=== PATIENT | female | born 1960 | race Caucasian/White ===

== ENCOUNTER 2020-04-21 07:44 | Outpatient (REF) | payer OTHER, SELFPAY ==
[2020-04-21 08:57] LABS: Albumin Level 4.4 g/dL (3.5-5.0); Calcium 9.8 mg/dL (8.4-10.2); Estimated Glomerular Filt Rate > 60
[2020-04-21 09:18] LABS: Vitamin D 25-OH Total 42.8 ng/mL (>30)
[2020-04-21 09:20] LABS: Free T4 (Free Thyroxine) 1.19 ng/dL (0.71-1.85); Thyroid Stimulating Hormone 1.13 uIU/mL (0.32-4.0)
[2020-04-21 09:57] LABS: Creatinine, mg/dL 65.84
[2020-04-21 13:57] LABS: Creatinine, 24Hr Urine 0.8 G/Day (1.0-2.0); Total Volume 24 Hour Urine 1275 mL
[2020-04-23 23:01] LABS: Adrenocorticotropic Hormone <5 pg/mL (6-50)
[2020-04-24 06:26] LABS: Calcium (PTHI) 10.2 mg/dL (8.6-10.4); PTHI 35 pg/mL (14-64)
[2020-04-25 20:42] LABS: Metanephrine, Free 33 pg/mL (<=57); Normetanephrines, Free 71 pg/mL (<=148); Total Metanephrine, Free 104 pg/mL (<=205)
[2020-04-26 12:53] LABS: Metanephrine, Free 24U 58 mcg/24 h (90-315); Normetanephrine, Free 24U 209 mcg/24 h (122-676); Total Metanephrine, Free 24U 267 mcg/24 h (224-832); Total Volume 24U 1275 mL
[2020-04-26 15:16] LABS: N-Telopeptide 46 (see note); NTXCreaRU 108 mg/dL (20-275)
[2020-05-02 05:43] LABS: CATF, 24 Ur Volume 1275 mL; CATF-24Ur Creatinine 0.84 g/24 h (0.50-2.15); Catecholamines,Tot. (E+NE) 24U 31 mcg/24 h (26-121); Dopamine, 24 Ur 117 mcg/24 h (52-480); Epinephrine, 24 Ur 4 mcg/24 h (2-24); Norepinephrine, 24 Ur 27 mcg/24 h (15-100)
[2020-05-02 16:51] LABS: Catecholamine Frac, Total 414 pg/mL
== END 2020-04-21 07:45 | disposition home or self-care (01) ==
LOC: HO.LAB 07:44
PROVIDERS: PCP Internal Medicine; Visit Provider Internal Medicine
DX: D35.01 Benign neoplasm of right adrenal gland (principal); E89.0 Postprocedural hypothyroidism; M85.80 Other specified disorders of bone density and structure, unspecified site; E83.52 Hypercalcemia; E55.9 Vitamin D deficiency, unspecified
CPT/HCPCS: 36415; 80299; 82024; 82040; 82306; 82310; 82384; 82523; 82533; 82565; 82570; 83835; 83970; 84439; 84443

== ENCOUNTER → 2020-04-26 15:35 | Outpatient (BNVA) | payer OTHER, SELFPAY | PROVIDERS: PCP Internal Medicine; Visit Provider Internal Medicine ==

== ENCOUNTER 2020-05-03 16:31 | Outpatient (REF) | payer OTHER, SELFPAY ==
--- NOTE | ~2020-05-03 | MR_ITS ---
EXAMINATION: MR ABDOMEN WITHOUT AND WITH CONTRAST CLINICAL INFORMATION: Benign neoplasm of the right adrenal gland COMPARISON: CT of the abdomen and pelvis 05/06/2018 TECHNIQUE: MR abdomen was performed without and with use of 6.5 mL intravenous Gadavist gadolinium contrast. Postcontrast images are performed in multiphase dynamic sequences. Imaging was performed in 3 planes. FINDINGS: LUNG BASES: The visualized lung bases are unremarkable. LIVER, GALLBLADDER, AND BILIARY TREE: The liver is normal in size, smooth in contour, and normal in signal. No focal hepatic lesion or biliary ductal dilatation is present. The gallbladder is unremarkable with no evidence of gallbladder wall thickening, or obvious pericholecystic inflammatory changes. PANCREAS: Unremarkable. SPLEEN: Normal. ADRENAL GLANDS: There is a 1.6 x 1.2 cm right adrenal nodule, overall similar in size as compared to the prior study. This nodule demonstrates decreased signal on opposed phase imaging, compatible with a lipid rich adrenal adenoma. The left adrenal gland is normal. KIDNEYS AND URETERS: The kidneys are normal in size, shape, and enhance symmetrically. No hydronephrosis. No perinephric stranding. GASTROINTESTINAL TRACT: The visualized stomach and small bowel are unremarkable. Again demonstrated is colonic diverticulosis. No evidence of diverticulitis. ABDOMINAL WALL: No significant hernia is appreciated. LYMPH NODES: No lymphadenopathy. VASCULAR: Normal caliber of the abdominal aorta OSSEOUS STRUCTURES: Marrow signal normal. MR/MR abdomen wo/w con IMPRESSION: Stable 1.6 x 1.2 cm benign right adrenal nodule. Diverticulosis of the colon without evidence of diverticulitis.
== END 2020-05-03 16:32 | disposition home or self-care (01) ==
LOC: HO.MRI 16:31
PROVIDERS: Visit Provider Internal Medicine
DX: D35.01 Benign neoplasm of right adrenal gland (principal)
CPT/HCPCS: 74183; A9585

== ENCOUNTER → 2020-06-21 15:45 | Outpatient (BNVA) | payer OTHER, SELFPAY | PROVIDERS: PCP Internal Medicine; Visit Provider Internal Medicine ==

== ENCOUNTER 2021-02-14 06:02 | Outpatient (REF) | payer OTHER, SELFPAY | END 2021-02-14 06:03 | disposition home or self-care (01) | LOC: HO.LAB 06:02 | PROVIDERS: PCP Internal Medicine; Visit Provider Internal Medicine | DX: Z13.89 Encounter for screening for other disorder (principal) ==

== ENCOUNTER 2021-04-06 07:52 | Outpatient (REF) | payer OTHER, SELFPAY ==
[2021-04-06 09:03] LABS: Alanine Aminotransferase 13 U/L (0-31); Albumin Level 4.1 g/dL (3.5-5.0); Alkaline Phosphatase 71 U/L (39-117); Anion Gap 12 (12-20); Aspartate Amino Transferase 18 U/L (5-31); Bilirubin Total 0.4 mg/dL (0.0-1.0); Blood Urea Nitrogen 21 mg/dL (9-16); Calcium 9.1 mg/dL (8.4-10.2); Carbon Dioxide 22 mmol/L (22-29); Chloride 110 mmol/L (96-108); Estimated Glomerular Filt Rate > 60; Glucose Random 100 mg/dL (60-115); Potassium 4.4 mmol/L (3.3-5.1); Sodium 140 mmol/L (135-145); Total Protein 6.3 g/dL (6.5-8.0)
[2021-04-06 09:20] LABS: Free T4 (Free Thyroxine) 1.14 ng/dL (0.71-1.85); Thyroid Stimulating Hormone 0.75 uIU/mL (0.32-4.0)
[2021-04-06 09:49] LABS: Creatinine, mg/dL 63.81
[2021-04-06 10:04] LABS: Cortisol Random 8.1 ug/dL
[2021-04-06 10:26] LABS: Creatinine, 24Hr Urine 1.1 G/Day (1.0-2.0); Total Volume 24 Hour Urine 1750 mL
[2021-04-06 13:44] LABS: Vitamin D 25-OH Total 37.3 ng/mL (>30)
[2021-04-08 16:35] LABS: Adrenocorticotropic Hormone 16 pg/mL (6-50)
[2021-04-08 16:35] LABS: Calcium, 24 Hr Urine 144 mg/24 h; Calcium/Creatinine Ratio 121 mg/g creat (30-275); Creatinine 24Hr Urine 1.19 g/24 h (0.50-2.15)
[2021-04-08 17:46] LABS: DHEA Sulfate 32 mcg/dL (8-188)
[2021-04-08 21:51] LABS: Prot Elec - Albumin 4.1 g/dL (3.8-4.8); Prot Elec - Alpha1 0.3 g/dL (0.2-0.3); Prot Elec - Alpha2 0.8 g/dL (0.5-0.9); Prot Elec - Beta 1 0.4 g/dL (0.4-0.6); Prot Elec - Beta 2 0.3 g/dL (0.2-0.5); Prot Elec - Gamma 0.5 g/dL (0.8-1.7); Prot Elec - Total Protein 6.3 g/dL (6.1-8.1)
[2021-04-09 12:37] LABS: Calcium (PTHI) 9.4 mg/dL (8.6-10.4); PTHI 44 pg/mL (14-64)
[2021-04-10 14:53] LABS: Metanephrine, Free 24U 90 mcg/24 h (90-315); Normetanephrine, Free 24U 298 mcg/24 h (122-676); Total Metanephrine, Free 24U 388 mcg/24 h (224-832); Total Volume 24U 1750 mL
[2021-04-10 22:07] LABS: Cortisol Free, 24 Hr Urine 38.9 mcg/24 h (4.0-50.0); Creatinine, 24 Hr Urine 1.22 g/24 h (0.50-2.15); Total Volume, 24 Hr Urine 1750 mL
[2021-04-11 18:16] LABS: Metanephrine, Free 38 pg/mL (<=57); Normetanephrines, Free 92 pg/mL (<=148); Total Metanephrine, Free 130 pg/mL (<=205)
[2021-04-12 20:46] LABS: CATF, 24 Ur Volume 1750 mL; CATF-24Ur Creatinine 1.24 g/24 h (0.50-2.15); Catecholamines,Tot. (E+NE) 24U 39 mcg/24 h (26-121); Dopamine, 24 Ur 203 mcg/24 h (52-480); Norepinephrine, 24 Ur 39 mcg/24 h (15-100)
[2021-04-14 15:26] LABS: Catecholamine Frac, Total 437 pg/mL
[2021-04-16 11:51] LABS: Renin 0.37 ng/mL/h (0.25-5.82)
== END 2021-04-06 07:53 | disposition home or self-care (01) ==
LOC: HO.LAB 07:52
PROVIDERS: Visit Provider Internal Medicine
DX: D35.01 Benign neoplasm of right adrenal gland (principal); E83.52 Hypercalcemia; E03.9 Hypothyroidism, unspecified
CPT/HCPCS: 36415; 80053; 82024; 82088; 82306; 82340; 82384; 82530; 82533; 82570; 82627; 83835; 83970; 84100; 84165; 84244; 84439; 84443

== ENCOUNTER 2021-06-06 03:13 | Observation (INO) | payer OTHER, SELFPAY ==
[2021-06-06] VITALS (8 sets, daily range): BP systolic 101–161; BP diastolic 51–90; PULSE 70–78; RESP 14–18; TEMP 36.6–37.2; O2SAT 95–100; BMI 30.3
--- NOTE | ~2021-06-06 | CT_ITS ---
EXAMINATION: CT ABDOMEN AND PELVIS WITH CONTRAST CLINICAL INFORMATION: Diffuse abdominal pain COMPARISON: May 06, 2018 TECHNIQUE: Multidetector volumetric images were obtained from the superior aspect of the liver through the pubic symphysis following administration 85 mL of Omnipaque 350 intravenous contrast. Sagittal and coronal reformatted images were obtained on the technologist's workstation. Oral contrast: No This CT examination was performed using dose optimization techniques as appropriate, variously including the following: *Automated exposure control *Adjustment of mA and/or kV according to patient size (this includes techniques or standardized protocols for targeted exams where dose is matched to indication/reason for exam; i.e. extremities or head) *Use of iterative reconstruction technique DLP: 458 mGy-cm FINDINGS: LUNG BASES: The visualized lung bases are unremarkable. No pleural or pericardial effusion. LIVER, GALLBLADDER, AND BILIARY TREE: The liver is normal in size, shape, and attenuation. No focal hepatic lesion or biliary ductal dilatation is present. There is some focal fatty infiltration seen adjacent to the falciform ligament. The gallbladder is unremarkable with no evidence of radiopaque gallstones, gallbladder wall thickening, or obvious pericholecystic inflammatory changes. PANCREAS: There is an 8 mm low-density lesion adjacent to the anterior aspect of the tail of the pancreas which may represent a small serous or mucinous tumor. This was present and appears stable compared to study of May 06, 2018. No peripancreatic inflammatory change. SPLEEN: Unremarkable. ADRENAL GLANDS: There is a stable 2.0 x 1.3 cm right adrenal gland adenoma. KIDNEYS AND URETERS: The kidneys are normal in size, shape, and attenuation. No hydronephrosis, hydroureter, or calculi seen. No perinephric stranding. BLADDER: Decompressed but unremarkable. GASTROINTESTINAL TRACT: No free air is identified. There is small to moderate amount of free fluid seen about the abdomen and pelvis. There mildly dilated loops of small bowel with bowel wall thickening and enhancement of the mucosa and muscularis propria with edematous submucosa. There appears to be a possible internal hernia of small bowel through the mesentery along the left colon. However the transition of caliber of small bowel appears to be at a surgical anastomosis about the right anterior abdomen. The appendix appears unremarkable. ABDOMINAL WALL: There is a small fat-containing supraumbilical hernia. LYMPH NODES: No lymphadenopathy is appreciated. VASCULAR: Portal vein is patent. No abdominal aortic aneurysm. There is aortoiliac calcified plaque most prominent within the iliac vessels and is difficult to tell whether there may be hemodynamically significant disease within the iliac arteries. PELVIC VISCERA: The uterus is enlarged with what appears to represent a 6.9 x 6.3 cm uterine mass which may represent a fibroid. On prior study of May 06, 2018 this measured approximately 5 x 6 cm in size. OSSEOUS STRUCTURES: There is L5-S1 degenerative disc disease present. No destructive bony lesion is identified. CT/CT abdomen pelvis w con IMPRESSION: Small bowel obstruction with transition point at region of surgical anastomosis about the anterior right abdomen with wall edema of the submucosa with enhancement of the mucosa and muscularis propria. Small amount of ascites present. Question of nonobstructing left internal hernia. Stable pancreatic and right adrenal gland lesions. Question enlarging uterine fibroid. Fleischner guidelines were followed.
--- NOTE | 2021-06-06 05:57 | ED_ITS ---
HPI - Abdominal Pain General Chief Complaint: Abdominal Pain Stated Complaint: stomach pain Time Seen by Provider: 06/06/21 05:25 Source: patient Mode of arrival: ambulatory History of Present Illness HPI narrative: 60-year-old female with a history of diverticulitis as well as abdominal hernia and still has her gallbladder and appendix presents with worsening mid abdominal discomfort since Thursday, she denies that the pain radiates anywhere and she states she has had chills but otherwise denies nausea, vomiting, diarrhea and denies any urinary pain/burning/frequency. She also endorses that she has no history of renal colic for Related Data Previous Rx's Medication Instructions Recorded cholecalciferol (vitamin D3) 50 50 mcg PO DAILY 30 Days #30 cap 12/25/ mcg (2,000 unit) capsule levothyroxine 100 mcg tablet 100 mcg PO DAILY #90 tab 04/08/21 Allergies Allergy/AdvReac Type Severity Reaction Status Date / Time morphine Allergy Unknown ?rash Verified 06/06/21 03:36 gluten Allergy Unknown Verified 06/06/21 03:36 lactase [From Dairy Aid] Allergy Unknown Verified 06/06/21 03:36 peanut [Peanut] AdvReac Intermediate DIVERTICULI Verified 06/06/21 03:36 TIS Review of Systems Review of Systems Pertinent positives and negatives as stated in HPI and 10 point review of systems is otherwise negative. PMFSH Past Medical History Source: nursing notes reviewed Medical History Adrenal adenoma Hypercalcemia Hypothyroidism Osteopenia Vitamin D deficiency Surgical History H/O mastectomy Hx of colonoscopy Hx of rotator cuff surgery Status post Jeremiah procedure Family History Family History Father Hypertension Skin cancer Mother No problems noted. Social History Social History Advance Directives: No Advance Directives Information Provided: Yes Physical Exam ED Vital Signs: Vital Signs - 24 hr 06/06/21 03:33 Temperature 98.7 F Pulse Rate 78 Respiratory Rate 16 Blood Pressure 134/78 Pulse Oximetry 98 BMI result Body Mass Index 30.3 VITAL SIGNS: Reviewed. GENERAL: Well developed, well nourished, in no acute distress. HEAD: Normocephalic/atraumatic EYES: PERRLA, EOMI EARS: Ext canals without abnormality OROPHARYNX: no oral lesions noted, posterior pharynx clear LUNGS: Normal breath sounds. No adventitious sounds or accessory muscle use. SpO2<98> CARDIOVASCULAR: Regular rate and rhythm without noted murmurs, no JVD or lower extremity edema. ABDOMEN: Soft, diffusely tender without rebound, maximal left lower quadrant, non-distended with bowel sounds, no CVA tenderness SKIN: Inspection of the skin reveals no rashes NEUROLOGIC: Alert and oriented x 4. Strength and sensation to light touch were grossly intact x 4. Course Course Course Narrative: 60-year-old female with history and clinical presentation suggestive of possible diverticulitis, appendicitis, renal colic. Signed out to Dr Ryder. [facility] - Abdominal Pain Lab Data Result diagrams: 06/06/21 06:42 06/06/21 06:42 Discharge Plan Discharge Clinical Impression: Abdominal pain Patient Disposition: Still a Patient Prescriptions: No Action cholecalciferol (vitamin D3) 50 mcg (2,000 unit) capsule 50 mcg PO DAILY 30 Days Qty: 30 11RF levothyroxine 100 mcg tablet 100 mcg PO DAILY Qty: 90 11RF
[2021-06-06 06:46] LABS: MANUAL DIFF FLAG NO
[2021-06-06 06:50] LABS: Basophils Percent Auto 0.3 % (0-2); Eosinophils Absolute Auto 0.1 X10*3/uL (0.0-0.4); Eosinophils Percent Auto 0.6 % (0-4); Hematocrit 45.2 % (37.0-47.0); Hemoglobin 15.4 g/dl (12.0-16.0); Imm Gran Abs Auto 0.05 X10*3/uL (0.00-0.03); Imm Gran Pct Auto 0.4 % (0.0-0.4); Lymphocytes Absolute Auto 1.7 X10*3/uL (1.2-4.9); Lymphocytes Percent Auto 14.9 % (20-40); Mean Corpuscular HGB Conc 34.1 g/dl (31.0-35.0); Mean Corpuscular Hemoglobin 31.8 pg (27.0-33.0); Mean Corpuscular Volume 93.2 fL (80.0-98.0); Mean Platelet Volume 10.6 fL (9.4-12.3); Monocytes Absolute Auto 0.6 X10*3/uL (0.1-1.2); Neutrophils Absolute Auto 9.1 x10*3/uL (2.0-8.3); Neutrophils Percent Auto 78.8 % (45-73); Platelet Count 229 X10*3/uL (160-400); Red Blood Count 4.85 X10*6/uL (4.20-5.50); Red Cell Distribution Width 12.9 % (11.0-16.0); White Blood Count 11.6 X10*3/uL (4.8-10.8)
[2021-06-06] MEDS: Ketorolac Tromethamine 30 MG/ML VIAL 15 MG IVPUSH (06:52)
[2021-06-06 07:07] LABS: Alanine Aminotransferase 15 U/L (0-31); Albumin Level 4.5 g/dL (3.5-5.0); Alkaline Phosphatase 69 U/L (39-117); Anion Gap 11 (12-20); Aspartate Amino Transferase 17 U/L (5-31); Bilirubin Total 0.4 mg/dL (0.0-1.0); Blood Urea Nitrogen 9 mg/dL (9-16); Calcium 9.7 mg/dL (8.4-10.2); Carbon Dioxide 28 mmol/L (22-29); Chloride 105 mmol/L (96-108); Creatinine Clr Calc Pharmacy 68.4; Estimated Glomerular Filt Rate > 60; Glucose Random 104 mg/dL (60-115); Lipase 21 U/L (8-78); Potassium 4.3 mmol/L (3.3-5.1); Sodium 140 mmol/L (135-145); Total Protein 6.8 g/dL (6.5-8.0)
[2021-06-06] MEDS: Piperacillin Sodium/Tazobactam 3.375 GM in 0.9 % Sodium Chloride 50 ML IV (07:37)
[2021-06-06 07:49] LABS: Appearance Urine CLEAR; Color Urine YELLOW; Glucose Urine UA NEG (NEG); Leukocyte Esterase Urine NEG (NEG); Nitrite Urine NEG (NEG); PH 5.5 (5.0-8.0); Specific Gravity - Urine <= 1.005 (1.005-1.025); UACC Culture Trigger NO; Urine Blood TRACE (NEG); Urine Ketones NEG (NEG); Urine Protein NEG (NEG-TRACE)
[2021-06-06 07:56] LABS: RBC Urine 0-2 /HPF (0); Squamous Epithelial Cell Urine TRACE /LPF; WBC Urine 0 /HPF (0-4)
[2021-06-06] MEDS: iohexoL 350 MG/ML 100 ML INFUS..BTL IV (08:55)
--- NOTE | 2021-06-06 09:16 | PC.NURSE ---
PT AWAKE IN NO OUTWARD DISTRESS. AWAITING CT SCAN RESULTS
--- NOTE | 2021-06-06 12:17 | PC.NURSE ---
DR SONG AT THE BEDSIDE TO REVIEW CT RESULTS
--- NOTE | 2021-06-06 12:55 | PHA.MEDREC ---
Pharmacy Consult ? Medication Reconciliation Pharmacy has completed the medication reconciliation.
--- NOTE | 2021-06-06 12:59 | P.HPGS_ITS ---
History of Present Illness History of Present Illness Date of Service: 06/06/21 <Yaima Momin PA-C - Last Filed: 06/06/21 13:26> 06/06/21 <Cristian Saba MD - Last Filed: 06/06/21 14:56> Chief complaint: SBO <Yaima Momin PA-C - Last Filed: 06/06/21 13:26> Narrative: Haven Delcid is a 60 year old female who presented to the ED with complaints of abdominal pain. The patient reports the pain began Thursday after eating [place] food. The pain wasn't consistenly in one spot and was more diffuse with occasional more severe episodes in the mid abdomen on the right side. She has never had a pain like this before. It was not associated with nausea, vomiting, fever, chills, diarrhea. She has been passing flatus and her last BM was today. It was moderate in severity and persisted prompting her to seek evaluation in the ED. Work up in the ED included a CT scan abd/pelvis which showed mildly dilated loops of small bowel with bowel wall thickening and enhancement of the mucosa and muscularis propria with edematous submucosa with a possible internal hernia of small bowel through the mesentery along the left colon with the transition of caliber of small bowel appears to be at a surgical anastomosis about the right anterior abdomen. She feels improved now with minimal abdominal pain and wants to go home. Patient has a history of gian procedure in 2016 for perforated diverticulitis with abscess followed by subsequent colostomy reversal with diverting loop ileostomy and loop ileostomy closure. <Yaima Momin PA-C - Last Filed: 06/06/21 13:26> Review of Systems Constitutional: Constitutional: Denies chills, Denies fever(s), Denies malaise and Reports poor appetite <Yaima Momin PA-C - Last Filed: 06/06/21 13:26> ENT: Denies dizziness <WENDY Mayorga Last Filed: 06/06/21 13:26> Cardiovascular: Cardiovascular: Denies chest pain and Denies dyspnea <Yaima Momin PA-C - Last Filed: 06/06/21 13:26> Respiratory: Respiratory: Denies dyspnea <Yaima Momin PA-C - Last Filed: 06/06/21 13:26> Gastrointestinal: Gastrointestinal: Reports as per HPI, Denies hematochezia, Denies change in stool character, Denies constipation, Denies diarrhea, Denies nausea and Denies vomiting <Yaima Momin PA-C - Last Filed: 06/06/21 13:26> Genitourinary: Genitourinary: Denies hematuria and Denies dysuria <Yaima Momin PA-C - Last Filed: 06/06/21 13:26> Integumentary/Breasts: Skin/Breast: Denies rash <Yaima Momin PA-C - Last Filed: 06/06/21 13:26> Neurologic: Denies dizziness <Yaima Momin PA-C - Last Filed: 06/06/21 13:26> [facility] Past Medical History Medical History: Medical History (Updated 06/06/21 @ 13:25 by Yaima Momin PA-C) Adrenal adenoma Hypercalcemia Hypothyroidism Osteopenia Vitamin D deficiency <Yaima Momin PA-C - Last Filed: 06/06/21 13:26> Family History Family History: Family History Father Hypertension Skin cancer Mother No problems noted. <Yaima Momin PA-C - Last Filed: 06/06/21 13:26> Surgical History Surgical History: Surgical History (Updated 06/06/21 @ 13:06 by Yaima Momin PA-C) H/O mastectomy Hx of colonoscopy Hx of rotator cuff surgery S/P colostomy takedown S/P thyroidectomy Status post Gian procedure Status post reversal of ileostomy <Yaima Momin PA-C - Last Filed: 06/06/21 13:26> Social History Social History: Social History Advance Directives: No Advance Directives Information Provided: Yes <Yaima Momin PA-C - Last Filed: 06/06/21 13:26> Meds Allergies/Adverse reactions: Allergies Allergy/AdvReac Type Severity Reaction Status Date / Time morphine Allergy Unknown ?rash Verified 06/06/21 03:36 gluten Allergy Unknown Verified 06/06/21 03:36 lactase [From Dairy Aid] Allergy Unknown Verified 06/06/21 03:36 peanut [Peanut] AdvReac Intermediate DIVERTICULI Verified 06/06/21 03:36 TIS <Yaima Momin PA-C Last Filed: 06/06/21 13:26> Home medications: Home Medications Medication Instructions Recorded Confirmed Last Taken Type cholecalciferol (vitamin D3) 50 50 mcg PO BEDTIME 06/06/21 06/06/21 06/05/21 History mcg (2,000 unit) capsule <Yaima Momin PA-C Last Filed: 06/06/21 13:26> Physical Exam Vital Signs: Vital Signs: Last Vital Signs Temp 98.7 F 06/06/21 03:33 Pulse 74 06/06/21 09:17 Resp 14 06/06/21 09:17 BP 113/55 L 06/06/21 09:17 Pulse Ox 98 06/06/21 03:33 BMI result Body Mass Index 30.3 <WENDY Mayorga Last Filed: 06/06/21 13:26> Const: General: comfortable, no acute distress and alert <Yaima Momin PA-C Last Filed: 06/06/21 13:26> Nutritional Appearance: well nourished <Yaima Momin PA-C Last Filed: 06/06/21 13:26> Orientation/consciousness: patient oriented x3 <WENDY Mayorga Last Filed: 06/06/21 13:26> Resp: Effort & Inspection: normal respiratory effort <WENDY Mayorga Last Filed: 06/06/21 13:26> Cardio: Rate: regular rate <Yaima Momin PA-C Last Filed: 06/06/21 13:26> GI: Inspection: No distended and Yes scar (midline) <WENDY Mayorga Last Filed: 06/06/21 13:26> Palpation (GI): Soft to palpation, Tenderness to palpation present (GI) (very mild to deep palpation, right upper/midabdomen), no guarding and not rigid <Yaima Momin PA-C Last Filed: 06/06/21 13:26> Percussion: Yes normal to percussion <Yaima Momin PA-C Riccardo Last Filed: 06/06/21 13:26> Abdomen image: 1. 2. 3. <Yaima Momin PA-C Riccardo Last Filed: 06/06/21 13:26> Skin: General skin exam: no rashes or lesions noted <Yaima Momin PA-C Riccardo Last Filed: 06/06/21 13:26> Neuro: General: patient oriented x3 <Yaima Momin PA-C Riccardo Filed: 06/06/21 13:26> Extrem: General: Yes no clubbing, cyanosis or edema <WENDY Mayorga Last Filed: 06/06/21 13:26> Results Results Labs: Short CBC 06/06/21 Range/Units 06:42 WBC 11.6 H (4.8-10.8) X10*3/uL Hgb 15.4 (12.0-16.0) g/dl Hct 45.2 (37.0-47.0) % Plt Count 229 (160-400) X10*3/uL BMP 06/06/21 06:42 Sodium 140 Potassium 4.3 Chloride 105 Carbon Dioxide 28 BUN 9 D Creatinine 0.71 Calcium 9.7 D Liver Function 06/06/21 Range/Units 06:42 Total Bilirubin 0.4 (0.0-1.0) mg/dL AST 17 (5-31) U/L ALT 15 (0-31) U/L Alkaline Phosphatase 69 (39-117) U/L Albumin 4.5 (3.5-5.0) g/dL Urine 06/06/21 Range/Units 07:39 Urine Color YELLOW Urine Appearance CLEAR Urine pH 5.5 (5.0-8.0) Ur Specific [place] <= 1.005 (1.005-1.025) Urine Protein NEG (NEG-TRACE) MG/DL Urine Glucose (UA) NEG (NEG) MG/DL <WENDY Mayorga Last Filed: 06/06/21 13:26> Additional studies: CT SCAN ABD/PELVIS: IMPRESSION: Small bowel obstruction with transition point at region of surgical anastomosis about the anterior right abdomen with wall edema of the submucosa with enhancement of the mucosa and muscularis propria. Small amount of ascites present. Question of nonobstructing left internal hernia. Stable pancreatic and right adrenal gland lesions. Question enlarging uterine fibroid. Fleischner guidelines were followed. <Yaima Momin PA-C - Last Filed: 06/06/21 13:26> Assessment and Plan (1) SBO (small bowel obstruction): Status: Acute <Yaima Momin PA-C - Last Filed: 06/06/21 13:26> Patient seen and examined the ER Currently has minimal pain or tenderness Looks well Abdomen soft very benign However, in view of her CAT scan findings showing question of obstruction, I told her it is best to keep her in the hospital overnight Keep on clear liquids Labs okay otherwise Seen examined independently - agree with SEAN Momin <Cristian Saba MD - Last Filed: 06/06/21 14:56> Plan 60 year old female with history of multiple abdominal surgeries who presented to the ED with complaints of abdominal pain with a CT scan demonstrating dilated small bowel loops with possible wall thickening and question of an internal hernia with transition of caliber of small bowel appears to be at a surgical anastomosis. The patient feels well now with minimal abdominal pain. She is clinically appearing well and her abdomen is very benign with very mild tenderness to deep palpation in the right mid abdomen. ?SBO may be resolving as she has good GI function. At this time doubt SBO secondary to internal hernia as she is very well appearing. Will keep her overnight for observation as she did just receive analgesics that may be masking pain. Will continue clear liquids for now, analgesics and antiemetics as needed. Patient discussed with Dr. Saba. <Yaima Momin PA-C - Last Filed: 06/06/21 13:26> Quality Stroke Does the patient have a stroke diagnosis?: No <Yaima Momin PA-C - Last Filed: 06/06/21 13:26> VTE Prior VTE?: No <WENDY Mayorga Last Filed: 06/06/21 13:26> VTE Risk Level:: Medical - low <WENDY Mayorga Last Filed: 06/06/21 13:26> VTE Device Contraindication: N/A - Device Ordered <Yaima Momin PA-C - Last Filed: 06/06/21 13:26> VTE Drug Contraindication: Treatment Not Indicated <Yaima Momin PA-C - Last Filed: 06/06/21 13:26> Procedures Date of Service Date of Service: 06/06/21 <Yaima Momin PA-C - Last Filed: 06/06/21 13:26>
[2021-06-06] MEDS: Lactated Ringers 1,000 ML 80 ML IVCONT (13:41)
[2021-06-06 14:37] LABS: COVID-19 Test Negative (Negative); IDNOW Serial# 16C4AD1C
--- NOTE | 2021-06-06 15:36 | PC.NURSE ---
PT TO OVERFLOW AWAITING ADMISSION
--- NOTE | 2021-06-06 17:18 | PM.EVENT ---
Event Note Date of Service: 06/06/21 Event Note: Seen on afternoon rounds feels well minimal pain no n/v abd soft, nondistended, benign, very minimal tenderness keep on clears reeval tomorrow, if continuing to do well, advance diet
[2021-06-06] MEDS: Melatonin 3 MG TABLET 6 MG PO (22:45)
[2021-06-06] MEDS: oxyCODONE HCl Immed Release 5 MG TABLET 10 MG PO (22:45)
[2021-06-07] MEDS: Lactated Ringers 1,000 ML 80 ML IVCONT ×2 (02:57→14:57)
[2021-06-07] MEDS: Levothyroxine Sodium 100 MCG TABLET PO (04:30)
[2021-06-07 07:07] VITALS: BP 131/68; PULSE 80; RESP 17; TEMP 36.6; O2SAT 95
[2021-06-07] MEDS: oxyCODONE HCl Immed Release 5 MG TABLET 10 MG PO (07:47)
--- NOTE | 2021-06-07 08:55 | P.PNGS_ITS ---
Subjective Subjective Date of Service: 06/07/21 Interval history: Says she still has pain, although better Mostly on the upper abdomen Passing flatus No nausea or vomiting Physical Exam Vital Signs: Vital Signs: Last Vital Signs Temp 97.9 F 06/07/21 07:07 Pulse 80 06/07/21 07:07 Resp 17 06/07/21 07:07 BP 131/68 06/07/21 07:07 Pulse Ox 95 06/07/21 07:07 BMI result Body Mass Index 30.3 Const: General: comfortable and no acute distress Resp: Effort & Inspection: normal respiratory effort Cardio: Rate: regular rate GI: Other: Mild tenderness, diffuse the Inspection: No distended Palpation (GI): Soft to palpation, not firm, no guarding and not rigid Objective Data Active Medications Acetaminophen (Acetaminophen 325 Mg Tablet) 650 mg PO Q6H PRN PRN Reason: Pain, Mild (Pain Scale 1-3) Hydromorphone HCl (Hydromorphone Hcl 0.5 Mg/0.5 Ml Syringe) 0.25 mg IVPUSH Q3H PRN; Protocol PRN Reason: Pain, Severe (Pain Scale 7-10) Lactated Ringer's (Lr) 1,000 mls @ 80 mls/hr IVCONT .[id number] [facility] Last Admin: 06/07/21 02:57 Dose: 80 mls/hr Documented by: KATHERINE Ketorolac Tromethamine (Ketorolac Tromethamine 15 Mg/Ml Vial) 15 mg IVPUSH Q6H PRN PRN Reason: abdominal pain Levothyroxine Sodium (Levothyroxine Sodium 100 Mcg Tablet) 100 mcg PO DAILY@0600 [facility] Last Admin: 06/07/21 04:30 Dose: 100 mcg Documented by: KATHERINE Melatonin (Melatonin 3 Mg Tablet) 6 mg PO BEDTIME PRN PRN Reason: Insomnia Last Admin: 06/06/21 22:45 Dose: 6 mg Documented by: KATHERINE Oxycodone HCl (Oxycodone Hcl Immed Release 5 Mg Tablet) 5 mg PO Q4H PRN PRN Reason: Pain, Moderate (Pain Scale 4-6 Oxycodone HCl (Oxycodone Hcl Immed Release 5 Mg Tablet) 10 mg PO Q4H PRN PRN Reason: Pain, Severe (Pain Scale 7-10) Last Admin: 06/07/21 07:47 Dose: 10 mg Documented by: PRASHANTH Sodium Chloride (0.9 % Sodium Chloride Flush 3 Ml Syringe) 3 ml IVFLUSH QSHIFT [facility] Last Admin: 06/07/21 07:45 Dose: Not Given Documented by: PRASHANTH Non-Admin Reason: IV Running Labs CBC & Chem 7: 06/06/21 06:42 06/06/21 06:42 Labs: Laboratory Results - last 24 hr 06/06/21 14:16 COVID-19 (JENNIFER) Negative COVID-19 Clin Com See Note Procedures Date of Service Date of Service: 06/07/21 Progress Note: A&P Assessment and plan (1) SBO (small bowel obstruction): Status: Acute Assessment and Plan: Still with abdominal pain, although better Passing flatus Abdomen soft and benign Will keep on clear liquids for now and re-evaluate later on today Otherwise looks well and ambulating Fall Risk Details Current Medications: Current Medications Acetaminophen (Acetaminophen 325 Mg Tablet) 650 mg PO Q6H PRN PRN Reason: Pain, Mild (Pain Scale 1-3) Hydromorphone HCl (Hydromorphone Hcl 0.5 Mg/0.5 Ml Syringe) 0.25 mg IVPUSH Q3H PRN; Protocol PRN Reason: Pain, Severe (Pain Scale 7-10) Lactated Ringer's (Lr) 1,000 mls @ 80 mls/hr IVCONT .[id number] [facility] Last Admin: 06/07/21 02:57 Dose: 80 mls/hr Documented by: Ketorolac Tromethamine (Ketorolac Tromethamine 15 Mg/Ml Vial) 15 mg IVPUSH Q6H PRN PRN Reason: abdominal pain Levothyroxine Sodium (Levothyroxine Sodium 100 Mcg Tablet) 100 mcg PO DAILY@0600 [facility] Last Admin: 06/07/21 04:30 Dose: 100 mcg Documented by: Melatonin (Melatonin 3 Mg Tablet) 6 mg PO BEDTIME PRN PRN Reason: Insomnia Last Admin: 06/06/21 22:45 Dose: 6 mg Documented by: Oxycodone HCl (Oxycodone Hcl Immed Release 5 Mg Tablet) 5 mg PO Q4H PRN PRN Reason: Pain, Moderate (Pain Scale 4-6 Oxycodone HCl (Oxycodone Hcl Immed Release 5 Mg Tablet) 10 mg PO Q4H PRN PRN Reason: Pain, Severe (Pain Scale 7-10) Last Admin: 06/07/21 07:47 Dose: 10 mg Documented by: Sodium Chloride (0.9 % Sodium Chloride Flush 3 Ml Syringe) 3 ml IVFLUSH [facility] Last Admin: 06/07/21 07:45 Dose: Not Given Documented by: Time Spent With Patient Time: Total time spent is greater than 50% in coordination of care (as documented) at patient's floor/unit and/or counseling patient: Quality Stroke Does the patient have a stroke diagnosis?: No VTE Prior VTE?: No VTE Risk Level:: Medical - low VTE Device Contraindication: N/A - Device Ordered VTE Drug Contraindication: Treatment Not Indicated
--- NOTE | 2021-06-07 09:20 | MHC.CM.PN ---
nurse case resource manager note electronic medical record reviewed along with case discusses with staff nurse. 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
[2021-06-07 16:00] VITALS: BP 179/99; PULSE 89; RESP 20; TEMP 36.6; O2SAT 98
[2021-06-08] VITALS: BP 131/66; PULSE 63; RESP 18; TEMP 36.6; O2SAT 98
[2021-06-08] MEDS: Melatonin 3 MG TABLET 6 MG PO (00:01)
[2021-06-08] MEDS: Lactated Ringers 1,000 ML 80 ML IVCONT (02:41)
[2021-06-08] MEDS: Levothyroxine Sodium 100 MCG TABLET PO (03:03)
[2021-06-08 06:15] LABS: Hematocrit 38.8 % (37.0-47.0); Hemoglobin 13.1 g/dl (12.0-16.0); Mean Corpuscular HGB Conc 33.8 g/dl (31.0-35.0); Mean Corpuscular Hemoglobin 31.3 pg (27.0-33.0); Mean Corpuscular Volume 92.6 fL (80.0-98.0); Mean Platelet Volume 11.2 fL (9.4-12.3); Platelet Count 201 X10*3/uL (160-400); Red Blood Count 4.19 X10*6/uL (4.20-5.50); Red Cell Distribution Width 12.6 % (11.0-16.0); White Blood Count 5.9 X10*3/uL (4.8-10.8)
[2021-06-08 06:33] LABS: Anion Gap 9 (12-20); Blood Urea Nitrogen 8 mg/dL (9-16); Carbon Dioxide 28 mmol/L (22-29); Chloride 107 mmol/L (96-108); Creatinine Clr Calc Pharmacy 82.4; Estimated Glomerular Filt Rate > 60; Glucose Random 85 mg/dL (60-115); Potassium 3.9 mmol/L (3.3-5.1); Sodium 140 mmol/L (135-145)
[2021-06-08 08:00] VITALS: BP 153/78; PULSE 67; RESP 17; TEMP 36.1; O2SAT 96
[2021-06-08] MEDS: 0.9 % Sodium Chloride Flush 3 ML SYRINGE IVFLUSH (09:37)
--- NOTE | 2021-06-08 10:01 | P.PNGS_ITS ---
Subjective Subjective Date of Service: 06/08/21 Interval history: feels well tolerating regular diet has flatus, Physical Exam Vital Signs: Vital Signs: Last Vital Signs Temp 97.0 F 06/08/21 08:00 Pulse 67 06/08/21 08:00 Resp 17 06/08/21 08:00 BP 153/78 H 06/08/21 08:00 Pulse Ox 96 06/08/21 08:00 BMI result Body Mass Index 30.3 Const: General: comfortable and no acute distress Resp: Effort & Inspection: normal respiratory effort Cardio: Rate: regular rate GI: Inspection: No distended Palpation (GI): Soft to palpation, not firm, nontender and no guarding Objective Data Active Medications Acetaminophen (Acetaminophen 325 Mg Tablet) 650 mg PO Q6H PRN PRN Reason: Pain, Mild (Pain Scale 1-3) Hydromorphone HCl (Hydromorphone Hcl 0.5 Mg/0.5 Ml Syringe) 0.25 mg IVPUSH Q3H PRN; Protocol PRN Reason: Pain, Severe (Pain Scale 7-10) Lactated Ringer's (Lr) 1,000 mls @ 80 mls/hr IVCONT .[id number] [facility] Last Admin: 06/08/21 02:41 Dose: 80 mls/hr Documented by: PARAMJIT Ketorolac Tromethamine (Ketorolac Tromethamine 15 Mg/Ml Vial) 15 mg IVPUSH Q6H PRN PRN Reason: abdominal pain Levothyroxine Sodium (Levothyroxine Sodium 100 Mcg Tablet) 100 mcg PO DAILY@0600 [facility] Last Admin: 06/08/21 03:03 Dose: 100 mcg Documented by: PARAMJIT Melatonin (Melatonin 3 Mg Tablet) 6 mg PO BEDTIME PRN PRN Reason: Insomnia Last Admin: 06/08/21 00:01 Dose: 6 mg Documented by: PARAMJIT Oxycodone HCl (Oxycodone Hcl Immed Release 5 Mg Tablet) 5 mg PO Q4H PRN PRN Reason: Pain, Moderate (Pain Scale 4-6 Oxycodone HCl (Oxycodone Hcl Immed Release 5 Mg Tablet) 10 mg PO Q4H PRN PRN Reason: Pain, Severe (Pain Scale 7-10) Last Admin: 06/07/21 07:47 Dose: 10 mg Documented by: PRASHANTH Sodium Chloride (0.9 % Sodium Chloride Flush 3 Ml Syringe) 3 ml IVFLUSH QSHIFT [facility] Last Admin: 06/08/21 09:37 Dose: 3 ml Documented by: DESHAUN Labs CBC & Chem 7: 06/08/21 05:23 06/08/21 05:23 Labs: Laboratory Results - last 24 hr 06/08/21 06/08/21 05:23 05:23 MCV 92.6 MCH 31.3 MCHC 33.8 RDW 12.6 Plt Count 201 MPV 11.2 Absolute Nucleated RBC 0.000 Nucleated RBC % (auto) 0.0 Anion Gap 9 L Estim Creat Clear Calc 82.4 Estimated GFR > 60 Random Glucose 85 Calcium 9.0 D Procedures Date of Service Date of Service: 06/08/21 Progress Note: A&P Assessment and plan (1) SBO (small bowel obstruction): Status: Acute Assessment and Plan: resolved likely from adhesions tolerating diet no abdl pain or tenderness ok to mi home explained to her possible recurrent episodes Fall Risk Details Current Medications: Current Medications Acetaminophen (Acetaminophen 325 Mg Tablet) 650 mg PO Q6H PRN PRN Reason: Pain, Mild (Pain Scale 1-3) Hydromorphone HCl (Hydromorphone Hcl 0.5 Mg/0.5 Ml Syringe) 0.25 mg IVPUSH Q3H PRN; Protocol PRN Reason: Pain, Severe (Pain Scale 7-10) Lactated Ringer's (Lr) 1,000 mls @ 80 mls/hr IVCONT .[id number] [facility] Last Admin: 06/08/21 02:41 Dose: 80 mls/hr Documented by: Ketorolac Tromethamine (Ketorolac Tromethamine 15 Mg/Ml Vial) 15 mg IVPUSH Q6H PRN PRN Reason: abdominal pain Levothyroxine Sodium (Levothyroxine Sodium 100 Mcg Tablet) 100 mcg PO DAILY@0600 [facility] Last Admin: 06/08/21 03:03 Dose: 100 mcg Documented by: Melatonin (Melatonin 3 Mg Tablet) 6 mg PO BEDTIME PRN PRN Reason: Insomnia Last Admin: 06/08/21 00:01 Dose: 6 mg Documented by: Oxycodone HCl (Oxycodone Hcl Immed Release 5 Mg Tablet) 5 mg PO Q4H PRN PRN Reason: Pain, Moderate (Pain Scale 4-6 Oxycodone HCl (Oxycodone Hcl Immed Release 5 Mg Tablet) 10 mg PO Q4H PRN PRN Reason: Pain, Severe (Pain Scale 7-10) Last Admin: 06/07/21 07:47 Dose: 10 mg Documented by: Sodium Chloride (0.9 % Sodium Chloride Flush 3 Ml Syringe) 3 ml IVFLUSH [facility] Last Admin: 06/08/21 09:37 Dose: 3 ml Documented by: Time Spent With Patient Time: Total time spent is greater than 50% in coordination of care (as documented) at patient's floor/unit and/or counseling patient: Quality Stroke Does the patient have a stroke diagnosis?: No VTE Prior VTE?: No VTE Risk Level:: Medical - low VTE Device Contraindication: N/A - Device Ordered VTE Drug Contraindication: Treatment Not Indicated
--- NOTE | 2021-06-08 10:41 | MHC.CM.PN ---
PATIENT IS DISCHARGED HOME - SELF CARE. RN AWARE OF PLAN.
--- NOTE | 2021-06-10 09:59 | P.DS_ITS ---
DS: Providers Provider Date of Service: 06/10/21 Date of admission: 06/06/21 12:52 Primary care physician: Minor Agustin MD Attending physician on admission: Cristian Saba Attending physician on discharge: Cristian Saba DS: Diagnosis Discharge Diagnosis (1) SBO (small bowel obstruction): Status: Acute DS: Summary Hospital Course Hospital Course: BRIEF HPI: Haven Delcid is a 60 year old female who presented to the ED with complaints of abdominal pain. The patient reports the pain began Thursday after eating [place] islander food. The pain wasn't consistenly in one spot and was more diffuse with occasional more severe episodes in the mid abdomen on the right side. She has never had a pain like this before. It was not associated with nausea, vomiting, fever, chills, diarrhea. She has been passing flatus and her last BM was today. It was moderate in severity and persisted prompting her to seek evaluation in the ED. Work up in the ED included a CT scan abd/pelvis which showed mildly dilated loops of small bowel with bowel wall thickening and enhancement of the mucosa and muscularis propria with edematous submucosa with a possible internal hernia of small bowel through the mesentery along the left colon with the transition of caliber of small bowel appears to be at a surgical anastomosis about the right anterior abdomen. Patient has a history of gian procedure in 2016 for perforated diverticul itis with abscess followed by subsequent colostomy reversal with diverting loop ileostomy and loop ileostomy closure. HOSPITAL COURSE: The patient was admitted to the surgical service for further treatment of the SBO. She actually felt improved and want to leave however she had just received pain meds and it was recommended to be admitted for observation. She was started on IVF, PRN PO/IV analgesics and a clear liquid diet. She had an uncomplicated hospital course. The following day she did have slightly more pain but continued to pass flatus and move her bowels. Her abdomen remained benign with mild tenderness, nondistended. She was assessed later in the day and felt improved and she was advanced to a solid diet. The following day, she was tolerating a solid diet without any abdominal pain, nausea or vomiting. She had good GI function. Her abdomen was soft and completely nontender. She felt ready for discharge. She was discharged to home on 06/08/21 in stable condition. She is to follow up with PCP. She was educated on the chance of recurrent episodes. Status at Discharge Functional status at discharge: independent ambulation Overall status at discharge: patient is back to baseline Time Spent with Patient Time attestation: Total time spent providing and/or coordinating discharge services: Discharge coordination time: Greater than 30 minutes Quality: Safe Use of Opioids Does Pt have an Active Cancer Diagnosis on the Problem List?: No Quality: Stroke Does the patient have a stroke diagnosis?: No Physical Exam Vital Signs: Vital Signs: Last Vital Signs Temp 97.0 F 06/08/21 08:00 Pulse 67 06/08/21 08:00 Resp 17 06/08/21 08:00 BP 153/78 H 06/08/21 08:00 Pulse Ox 96 06/08/21 08:00 BMI result Body Mass Index 30.3 Const: General: comfortable and no acute distress Orientation/consciousness: patient oriented x3 GI: Inspection: No distended Palpation (GI): Soft to palpation, nontender, no guarding and not rigid Percussion: Yes normal to percussion Skin: General skin exam: no rashes or lesions noted Neuro: General: patient oriented x3 Discharge Plan Discharge Patient Disposition: Home, Self-Care Referrals: Minor Agustin MD [Primary Care Provider] - 1 Week Discharge Medications: Continued levothyroxine 100 mcg tablet 100 mcg PO DAILY Qty: 90 11RF cholecalciferol (vitamin D3) 50 mcg (2,000 unit) capsule 50 mcg PO BEDTIME 0RF Discharge Orders: Discharge Order (Routine); Ordered 06/08/21 Ordered By: Cristian Saba Activity on Discharge: As tolerated Stand Alone Forms: Patient Portal Discharge page Care Plan Goals: monitor for recurrent episodes Health Concerns: bowel obstruction Plan of Treatment: continue all meds Assessment: doing very well Discharge Date/Time: 06/08/21 11:00
== END 2021-06-08 11:00 | disposition home or self-care (01) ==
LOC: HO.ED 07:04 → HO.EDOVER 13:45 → HO.S3 16:09
PROVIDERS: Student in an Organized Health Care Education/Training Program; Surgery; Admitting Provider Physician Assistant Surgical; Emergency Provider Emergency Medicine; PCP Internal Medicine; Visit Provider Physician Assistant Surgical
DX: K56.609 Unspecified intestinal obstruction, unspecified as to partial versus complete obstruction (principal); R10.9 Unspecified abdominal pain; D35.01 Benign neoplasm of right adrenal gland; K42.9 Umbilical hernia without obstruction or gangrene; R18.8 Other ascites; R14.3 Flatulence; E03.9 Hypothyroidism, unspecified; E83.52 Hypercalcemia; M85.80 Other specified disorders of bone density and structure, unspecified site; Z87.19 Personal history of other diseases of the digestive system; Z98.890 Other specified postprocedural states; Z88.6 Allergy status to analgesic agent; Z91.02 Food additives allergy status; Z91.011 Allergy to milk products; Z91.010 Allergy to peanuts; Z79.899 Other long term (current) drug therapy
CPT/HCPCS: 36415; 74177; 80048; 80053; 81001; 83690; 85025; 85027; 87635; 96361; 96365; 96375; 99218; 99285; J1885; J2543; Q9967

== ENCOUNTER 2022-06-27 08:34 | Outpatient (REF) | payer OTHER, SELFPAY ==
[2022-06-27 09:43] LABS: Thyroid Stimulating Hormone 3.74 uIU/mL (0.32-4.0)
== END 2022-06-27 08:35 | disposition home or self-care (01) ==
LOC: HO.LAB 08:34
PROVIDERS: Visit Provider Internal Medicine
DX: E03.9 Hypothyroidism, unspecified (principal)
CPT/HCPCS: 36415; 84439; 84443

== ENCOUNTER 2022-10-13 09:56 | Outpatient (AMB) | payer OTHER, SELFPAY ==
--- NOTE | 2022-10-13 09:56 | A.OFFVIS_ITS ---
Intake Intake Visit Reasons: F/U Adrenal Adenoma, needs 30 min Intake Note: Adrenal Adenoma follow up visit. 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 Of note she has not been seen since 2020 and has no recent labs or imaging to review. 1. Toxic multinodular goiter s/p total thyroidectomy: She had a history of toxic multinodular goiter and is now S/P total thyroidectomy by Dr. Arteaga 07/06/18. Path report revealed benign thyroid gland and removal of a solitary hypercellular parathyroid gland. She reports feeling well and has no complaints today. She has been taking Levothyroxine 100 mcg PO daily. TSH has remained WNL. She takes this correctly. 2. Osteopenia: Was initially diagnosed with Osteopenia many years ago. Has never been treated for this. Currently has 1 serving of dairy per day in the form of cheese. Takes Vitamin D 2000 IU daily, and also takes Citracal 1200 mg PO daily. She has no history of fracture. She denies any height loss. Denies ever using glucocorticoid medication, anticoagulant or antiepileptic meds. Not on chronic PPI therapy. No history of Osteoporosis in her family or history of hip fracture. She was a heavy smoker, but quit in 2018. She is , did not breast feed. Menarche age 13, menopause in mid 40's. Menses were always regular. Has poor dentition. 3. R adrenal adenoma: This is present on CT scan from 2015. Had repeat imaging 04/2020 which was unchanged. Her hormonal workup was negative for any evidence of pheochromocytoma or armida's disease. 4. Hypercalcemia: Labs reveal Calcium higher than expected for her age. PTH is WNL. She is refusing DEXA scan or additional workup at this time. Labs: Laboratory Tests 04/19/18 04/16/19 04/21/20 07:40 08:15 08:00 Creatinine Estimated GFR Calcium Albumin N-Telopeptide X-li nked 25-OH Vitamin D To vikas TSH PTH Intact Calcium (PTH Intac t) Cortisol ACTH Pl Free Catecholam ine 355 Plas Tot [place] Dopamine Epinephrine Norepinephrine Plasma Free Metane ph Plasma Free Normet a Plas Total Metanep h Ur 24 Hour Volume 1275 Ur Creatinine 24 H our 0.8 L Ur Epinephrine 24 Hr U Norepinephrine 2 4 Hr U Free Metanephrin e U Normetanephrine 24h U Tot Metanephrine 24h Ur Dopamine 24 Hr U Tot Catecholamin e 24h Bone Specific Alk Phos 20.5 Dexamethasone 04/21/20 04/21/20 04/21/20 08:00 08:00 08:13 Creatinine 0.70 Estimated GFR > 60 Calcium 9.8 Albumin 4.4 N-Telopeptide X-li nked 25-OH Vitamin D To vikas TSH 1.13 PTH Intact Calcium (PTH Intac t) Cortisol ACTH Pl Free Catecholam ine Plas Tot [place] Dopamine Epinephrine Norepinephrine Plasma Free Metane ph Plasma Free Normet a Plas Total Metanep h Ur 24 Hour Volume Ur Creatinine 24 H our Ur Epinephrine 24 Hr 4 U Norepinephrine 2 4 Hr 27 U Free Metanephrin e 58 L U Normetanephrine 24h 209 U Tot Metanephrine 24h 267 Ur Dopamine 24 Hr 117 U Tot Catecholamin e 24h 31 Bone Specific Alk Phos Dexamethasone 04/21/20 04/21/20 04/21/20 08:13 08:13 08:13 Creatinine Estimated GFR Calcium Albumin N-Telopeptide X-li nked 25-OH Vitamin D To vikas TSH PTH Intact Calcium (PTH Intac t) Cortisol 1.0 L ACTH <[address] Free Catecholam ine Plas Tot [place] 414 Dopamine 35 H Epinephrine <40 Norepinephrine 379 Plasma Free Metane ph Plasma Free Normet a Plas Total Metanep h Ur 24 Hour Volume Ur Creatinine 24 H our Ur Epinephrine 24 Hr U Norepinephrine 2 4 Hr U Free Metanephrin e U Normetanephrine 24h U Tot Metanephrine 24h Ur Dopamine 24 Hr U Tot Catecholamin e 24h Bone Specific Alk Phos Dexamethasone 04/21/20 04/21/20 04/21/20 08:13 08:13 08:13 Creatinine Estimated GFR Calcium Albumin N-Telopeptide X-li nked 25-OH Vitamin D To vikas 42.8 TSH PTH Intact 35 Calcium (PTH Intac t) 10.[address] Free Catecholam ine Plas Tot [place] Dopamine Epinephrine Norepinephrine Plasma Free Metane ph 33 Plasma Free Normet a 71 Plas Total Metanep h 104 Ur 24 Hour Volume Ur Creatinine 24 H our Ur Epinephrine 24 Hr U Norepinephrine 2 4 Hr U Free Metanephrin e U Normetanephrine 24h U Tot Metanephrine 24h Ur Dopamine 24 Hr U Tot Catecholamin e 24h Bone Specific Alk Phos Dexamethasone TNP 04/21/20 Unknown Creatinine Estimated GFR Calcium Albumin N-Telopeptide X-li nked 46 25-OH Vitamin D To vikas TSH PTH Intact Calcium (PTH Intac t) Cortisol ACTH Pl Free Catecholam ine Plas Tot [place] Dopamine Epinephrine Norepinephrine Plasma Free Metane ph Plasma Free Normet a Plas Total Metanep h Ur 24 Hour Volume Ur Creatinine 24 H our Ur Epinephrine 24 Hr U Norepinephrine 2 4 Hr U Free Metanephrin e U Normetanephrine 24h U Tot Metanephrine 24h Ur Dopamine 24 Hr U Tot Catecholamin e 24h Bone Specific Alk Phos Dexamethasone MRI Abdomen 05/03/2020: FINDINGS: LUNG BASES: The visualized lung bases are unremarkable. LIVER, GALLBLADDER, AND BILIARY TREE: The liver is normal in size, smooth in contour, and normal in signal. No focal hepatic lesion or biliary ductal dilatation is present. The gallbladder is unremarkable with no evidence of gallbladder wall thickening, or obvious pericholecystic inflammatory changes. PANCREAS: Unremarkable. SPLEEN: Normal. ADRENAL GLANDS: There is a 1.6 x 1.2 cm right adrenal nodule, overall similar in size as compared to the prior study. This nodule demonstrates decreased signal on opposed phase imaging, compatible with a lipid rich adrenal adenoma. The left adrenal gland is normal. KIDNEYS AND URETERS: The kidneys are normal in size, shape, and enhance symmetrically. No hydronephrosis. No perinephric stranding. GASTROINTESTINAL TRACT: The visualized stomach and small bowel are unremarkable. Again demonstrated is colonic diverticulosis. No evidence of diverticulitis. ABDOMINAL WALL: No significant hernia is appreciated. LYMPH NODES: No lymphadenopathy. VASCULAR: Normal caliber of the abdominal aorta OSSEOUS STRUCTURES: Marrow signal normal. [facility] Medical History Adrenal adenoma Hypercalcemia Hypothyroidism Osteopenia Vitamin D deficiency Surgical History H/O mastectomy Hx of colonoscopy Hx of rotator cuff surgery S/P colostomy takedown S/P thyroidectomy Status post Jeremiah procedure Status post reversal of ileostomy Family History Father Hypertension Skin cancer Mother No problems noted. Social History Household Members: Spouse Housing: House Do you presently have visiting nurse or other home services: No Patient Tobacco Use Status: Never used Tobacco Substance Use Type: Marijuana service: No Current occupational status: employed Assessment & Plan Assessment & Plan (1) Adrenal adenoma: Code(s): D35.00 - Benign neoplasm of unspecified adrenal gland Qualifiers: Laterality: right Qualified Code(s): D35.01 - Benign neoplasm of right adrenal gland Plan: Patient with a R adrenal adenoma that has remained stable in size. She is due for repeat biochemical evaluation and imaging. I have ordered these. She will complete these and F/U in 3 months time to review. All of her questions were answered. She is in agreement with this plan of care. I spent 20 minutes in reviewing the record, seeing the patient and documenting in the medical record, including 5 minutes on the phone with the Patient. (2) Osteopenia: Code(s): M85.80 - Other specified disorders of bone density and structure, unspecified site Qualifiers: Osteopenia location: unspecified Qualified Code(s): M85.80 - Other specified disorders of bone density and structure, unspecified site Plan: Patient with Osteopenia which I am concerned may be related to hyperparathyroidism. She has refused DEXA and additional labs at this time. I explained to her that she may have hyperparathyroidism which can cause osteoporosis, placing her at an increased risk of fracture. She states she understands this risk, but is not willing to undergo additional testing/workup at this time. (3) Vitamin D deficiency: Code(s): E55.9 - Vitamin D deficiency, unspecified Plan: Will repeat levels now. (4) Hypothyroidism: Code(s): E03.9 - Hypothyroidism, unspecified Qualifiers: Hypothyroidism type: unspecified Qualified Code(s): E03.9 - Hypothyroidism, unspecified Plan: Patient with postoperatively hypothyroidism after total thyroidectomy for a toxic MNG. TSH at goal. Will continue with Levothyroxine 100 mcg PO daily. (5) Hypercalcemia: Code(s): E83.52 - Hypercalcemia Plan: Calcium higher than expected for her age. She is refusing labs. Orders: Orders Adrenocorticotropic Hormone Today D35.01 - Benign neoplasm of right adrenal gland Aldosterone Today D35.01 - Benign neoplasm of right adrenal gland Basic Metabolic Panel Today D35.01 - Benign neoplasm of right adrenal gland Catecholamines, Frac., 24Ur Today D35.01 - Benign neoplasm of right adrenal gland Catecholamines, Frac., Plasma Today D35.01 - Benign neoplasm of right adrenal gland Cortisol Random Today D35.01 - Benign neoplasm of right adrenal gland DHEA Sulfate Today D35.01 - Benign neoplasm of right adrenal gland Metanephrines, Plasma Today D35.01 - Benign neoplasm of right adrenal gland Phosphorus Today M85.80 - Other specified disorders of bone density and structure, unspecified site PTHI Today M85.80 - Other specified disorders of bone density and structure, unspecified site Renin Today D35.01 - Benign neoplasm of right adrenal gland Free T4 (Free Thyroxine) Today E03.9 - Hypothyroidism, unspecified Thyroid Stimulating Hormone Today E03.9 - Hypothyroidism, unspecified Vitamin D 25-OH Total Today E55.9 - Vitamin D deficiency, unspecified Metanephrines, 24hr Urine Today D35.01 - Benign neoplasm of right adrenal gland Creatinine, 24 Hr Group Today D35.01 - Benign neoplasm of right adrenal gland MR abdomen wo/w con Today D35.01 - Benign neoplasm of right adrenal gland Telehealth Telehealth Location of provider rendering services: practice address Location of patient: address on file Patient Identification confirmed using: Name, : Yes Telehealth method: voice only Patient verbally consented to treatment: Yes Patient verbally consented to billing insurance company: Yes Patient informed of any privacy concerns related to visit: Yes Coding Level of Care Code Tele Est Pt Level 3 (25980) Diagnoses Adrenal adenoma D35.01 Laterality: right Osteopenia M85.80 Osteopenia location: unspecified Vitamin D deficiency E55.9 Hypothyroidism E03.9 Hypothyroidism type: unspecified Hypercalcemia E83.52
== END 2022-10-13 13:03 | disposition home or self-care (01) ==
LOC: HO.ENCR 09:56
PROVIDERS: PCP Internal Medicine; Visit Provider Internal Medicine
DX: D35.01 Benign neoplasm of right adrenal gland (principal); M85.80 Other specified disorders of bone density and structure, unspecified site; E55.9 Vitamin D deficiency, unspecified; E03.9 Hypothyroidism, unspecified; E83.52 Hypercalcemia
CPT/HCPCS: 99213

== ENCOUNTER → 2022-10-13 09:56 | Outpatient (BNVA) | payer OTHER, SELFPAY | PROVIDERS: PCP Internal Medicine; Visit Provider Internal Medicine ==

== ENCOUNTER 2023-01-15 12:48 | Outpatient (AMB) | payer OTHER, SELFPAY ==
--- NOTE | 2023-01-15 12:55 | A.OFFVIS_ITS ---
Intake Vital Signs 01/15/23 12:56 Height 4 ft 10 in Weight 157 lb 6.561 oz BMI 32.9 BP 118/78 Blood Pressure Location Lt brachial Position Sitting Pulse 62 Pulse Source Pulse Oximeter Intake Visit Reasons: Adrenal Adenoma/Nathan-confirmed Intake Note: New patient to Dr. Bejarano present today for Adrenal Adenoma follow up visit. 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 Accompanied by: Self / Same As Patient Allergies morphine Allergy (Unknown, Verified 01/15/23 13:01) ?rash gluten Allergy (Verified 01/15/23 13:01) Unknown lactase [From Dairy Aid] Allergy (Verified 01/15/23 13:01) Unknown peanut [Peanut] Adverse Reaction (Intermediate, Verified 01/15/23 13:01) DIVERTICULITIS Medication List - Last Reconciled 01/15/23 by Arron Bejarano MD cholecalciferol (vitamin D3) 50 mcg PO BEDTIME levothyroxine 100 mcg PO DAILY HPI HPI Comments History of Present Illness Details 62 YO F with PMHx Postoperative hypothyroidism after total thyroidectomy due to Toxic multinodular goiter, Osteopenia, R adrenal adenoma, Breast cancer now in remission who is seen in F/U for the same today. Patient last saw Dr. Evans on 10/13/2022 Of note she has not been seen since 2020 and has no recent labs or imaging to review. 1. Toxic multinodular goiter s/p total thyroidectomy: She had a history of toxic multinodular goiter and is now S/P total thyroidectomy by Dr. Arteaga 07/06/18. Path report revealed benign thyroid gland and removal of a solitary hypercellular parathyroid gland. She reports feeling well and has no complaints today. She has been taking Levothyroxine 100 mcg PO daily. TSH has remained WNL. She takes this correctly. 2. Osteopenia: Was initially diagnosed with Osteopenia many years ago. Has never been treated for this. Currently has 1 serving of dairy per day in the form of cheese. Takes Vitamin D 2000 IU daily, and also takes Citracal 1200 mg PO daily. She has no history of fracture. She denies any height loss. Denies ever using glucocorticoid medication, anticoagulant or antiepileptic meds. Not on chronic PPI therapy. No history of Osteoporosis in her family or history of hip fracture. She was a heavy smoker, but quit in 2019. She is , did not breast feed. Menarche age 13, menopause in mid 40's. Menses were always regular. Has poor dentition. 3. R adrenal adenoma: This is present on CT scan from 2015. Had repeat imaging 04/2020 which was unchanged. Her hormonal workup was negative for any evidence of pheochromocytoma or love's disease. 4. Hypercalcemia: Labs reveal Calcium higher than expected for her age. PTH is WNL. She is refusing DEXA scan or additional workup at this time. Labs: Laboratory Tests 04/19/18 04/16/19 04/21/20 07:40 08:15 08:00 Creatinine Estimated GFR Calcium Albumin N-Telopeptide X-li nked 25-OH Vitamin D To vikas TSH PTH Intact Calcium (PTH Intac t) Cortisol ACTH Pl Free Catecholam ine 355 Plas Tot [place] Dopamine Epinephrine Norepinephrine Plasma Free Metane ph Plasma Free Normet a Plas Total Metanep h Ur 24 Hour Volume 1275 Ur Creatinine 24 H our 0.8 L Ur Epinephrine 24 Hr U Norepinephrine 2 4 Hr U Free Metanephrin e U Normetanephrine 24h U Tot Metanephrine 24h Ur Dopamine 24 Hr U Tot Catecholamin e 24h Bone Specific Alk Phos 20.5 Dexamethasone 04/21/20 04/21/20 04/21/20 08:00 08:00 08:13 Creatinine 0.70 Estimated GFR > 60 Calcium 9.8 Albumin 4.4 N-Telopeptide X-li nked 25-OH Vitamin D To vikas TSH 1.13 PTH Intact Calcium (PTH Intac t) Cortisol ACTH Pl Free Catecholam ine Plas Tot [place] Dopamine Epinephrine Norepinephrine Plasma Free Metane ph Plasma Free Normet a Plas Total Metanep h Ur 24 Hour Volume Ur Creatinine 24 H our Ur Epinephrine 24 Hr 4 U Norepinephrine 2 4 Hr 27 U Free Metanephrin e 58 L U Normetanephrine 24h 209 U Tot Metanephrine 24h 267 Ur Dopamine 24 Hr 117 U Tot Catecholamin e 24h 31 Bone Specific Alk Phos Dexamethasone 04/21/20 04/21/20 04/21/20 08:13 08:13 08:13 Creatinine Estimated GFR Calcium Albumin N-Telopeptide X-li nked 25-OH Vitamin D To vikas TSH PTH Intact Calcium (PTH Intac t) Cortisol 1.0 L ACTH <[address] Free Catecholam ine Plas Tot [place] 414 Dopamine 35 H Epinephrine <40 Norepinephrine 379 Plasma Free Metane ph Plasma Free Normet a Plas Total Metanep h Ur 24 Hour Volume Ur Creatinine 24 H our Ur Epinephrine 24 Hr U Norepinephrine 2 4 Hr U Free Metanephrin e U Normetanephrine 24h U Tot Metanephrine 24h Ur Dopamine 24 Hr U Tot Catecholamin e 24h Bone Specific Alk Phos Dexamethasone 04/21/20 04/21/20 04/21/20 08:13 08:13 08:13 Creatinine Estimated GFR Calcium Albumin N-Telopeptide X-li nked 25-OH Vitamin D To vikas 42.8 TSH PTH Intact 35 Calcium (PTH Intac t) 10.[address] Free Catecholam ine Plas Tot [place] Dopamine Epinephrine Norepinephrine Plasma Free Metane ph 33 Plasma Free Normet a 71 Plas Total Metanep h 104 Ur 24 Hour Volume Ur Creatinine 24 H our Ur Epinephrine 24 Hr U Norepinephrine 2 4 Hr U Free Metanephrin e U Normetanephrine 24h U Tot Metanephrine 24h Ur Dopamine 24 Hr U Tot Catecholamin e 24h Bone Specific Alk Phos Dexamethasone TNP 04/21/20 Unknown Creatinine Estimated GFR Calcium Albumin N-Telopeptide X-li nked 46 25-OH Vitamin D To vikas TSH PTH Intact Calcium (PTH Intac t) Cortisol ACTH Pl Free Catecholam ine Plas Tot [place] Dopamine Epinephrine Norepinephrine Plasma Free Metane ph Plasma Free Normet a Plas Total Metanep h Ur 24 Hour Volume Ur Creatinine 24 H our Ur Epinephrine 24 Hr U Norepinephrine 2 4 Hr U Free Metanephrin e U Normetanephrine 24h U Tot Metanephrine 24h Ur Dopamine 24 Hr U Tot Catecholamin e 24h Bone Specific Alk Phos Dexamethasone MRI Abdomen 05/03/2020: FINDINGS: LUNG BASES: The visualized lung bases are unremarkable. LIVER, GALLBLADDER, AND BILIARY TREE: The liver is normal in size, smooth in contour, and normal in signal. No focal hepatic lesion or biliary ductal dilatation is present. The gallbladder is unremarkable with no evidence of gallbladder wall thickening, or obvious pericholecystic inflammatory changes. PANCREAS: Unremarkable. SPLEEN: Normal. ADRENAL GLANDS: There is a 1.6 x 1.2 cm right adrenal nodule, overall similar in size as compared to the prior study. This nodule demonstrates decreased signal on opposed phase imaging, compatible with a lipid rich adrenal adenoma. The left adrenal gland is normal. KIDNEYS AND URETERS: The kidneys are normal in size, shape, and enhance symmetrically. No hydronephrosis. No perinephric stranding. GASTROINTESTINAL TRACT: The visualized stomach and small bowel are unremarkable. Again demonstrated is colonic diverticulosis. No evidence of diverticulitis. ABDOMINAL WALL: No significant hernia is appreciated. LYMPH NODES: No lymphadenopathy. VASCULAR: Normal caliber of the abdominal aorta OSSEOUS STRUCTURES: Marrow signal normal. [facility] Medical History Adrenal adenoma Hypercalcemia Hypothyroidism Osteopenia Vitamin D deficiency Surgical History S/P thyroidectomy Status post reversal of ileostomy S/P colostomy takedown Status post Jeremiah procedure Hx of colonoscopy H/O mastectomy Hx of rotator cuff surgery Family History Father Hypertension Skin cancer Mother No problems noted. Social History Household Members: Spouse Housing: House Do you presently have visiting nurse or other home services: No Patient Tobacco Use Status: Never used Tobacco Substance Use Type: Marijuana service: No Current occupational status: employed Physical Exam Vital Signs: Last Vital Signs Pulse 62 01/15/23 12:56 BP 118/78 01/15/23 12:56 BMI result Body Mass Index 32.9 Assessment & Plan Assessment & Plan (1) Adrenal adenoma: Code(s): D35.00 - Benign neoplasm of unspecified adrenal gland Qualifiers: Laterality: right Qualified Code(s): D35.01 - Benign neoplasm of right adrenal gland Plan: This 62-year-old white female with a history of a right adrenal adenoma with benign characteristics and negative workup for hypersecretion. There is no need for any further workup or follow-up imaging. Would screen patient for Love's with 1 mg dexamethasone suppression test, cortisol and dexamethasone levels (2) Hypothyroidism: Code(s): E03.9 - Hypothyroidism, unspecified Qualifiers: Hypothyroidism type: unspecified Qualified Code(s): E03.9 - Hypothyroidism, unspecified Plan: Clinically and biochemically euthyroid on 100 mcg levothyroxine. Will continue current management (3) Hypercalcemia: Code(s): E83.52 - Hypercalcemia Plan: Has resolved Orders: Orders Cortisol Random Today D35.00 - Benign neoplasm of unspecified adrenal gland Dexamethasone Today D35.00 - Benign neoplasm of unspecified adrenal gland Medications: New dexamethasone 1 mg PO ONCE 1 tab 0RF Coding Level of Care Code Est Pt Level 3 (01744) Diagnoses Adenoma of right adrenal gland D35.01 Laterality: right Hypothyroidism, unspecified type E03.9 Hypothyroidism type: unspecified Hypercalcemia E83.52
[2023-01-15 12:56] VITALS: BP 118/78; PULSE 62; BMI 32.9
== END 2023-01-15 13:57 | disposition home or self-care (01) ==
PROVIDERS: PCP Internal Medicine; Visit Provider Internal Medicine Endocrinology, Diabetes & Metabolism
DX: D35.01 Benign neoplasm of right adrenal gland (principal); E03.9 Hypothyroidism, unspecified; E83.52 Hypercalcemia
CPT/HCPCS: 99213

== ENCOUNTER → 2023-01-15 12:48 | Outpatient (BNVA) | payer OTHER, SELFPAY | PROVIDERS: PCP Internal Medicine; Visit Provider Internal Medicine Endocrinology, Diabetes & Metabolism ==

== ENCOUNTER 2023-02-26 06:50 | Outpatient (REF) | payer OTHER, SELFPAY ==
[2023-02-26 09:08] LABS: Cortisol Random 1.6 ug/dL
[2023-03-05 13:38] LABS: Dexamethasone 266 ng/dL
== END 2023-02-26 06:51 | disposition home or self-care (01) ==
LOC: HO.LAB 06:50
PROVIDERS: PCP Internal Medicine; Visit Provider Internal Medicine Endocrinology, Diabetes & Metabolism
DX: D35.00 Benign neoplasm of unspecified adrenal gland (principal)
CPT/HCPCS: 36415; 80299; 82533

== ENCOUNTER 2023-03-12 11:38 | Outpatient (REF) | payer OTHER, SELFPAY ==
[2023-03-18 16:38] LABS: Saliva Cortisol 0.06 mcg/dL
== END 2023-03-12 11:39 | disposition home or self-care (01) ==
LOC: HO.LNP 11:38
PROVIDERS: Visit Provider Internal Medicine Endocrinology, Diabetes & Metabolism
DX: D35.01 Benign neoplasm of right adrenal gland (principal)
CPT/HCPCS: 82530

== ENCOUNTER 2024-01-18 15:04 | Outpatient (AMB) | payer OTHER, SELFPAY ==
--- NOTE | 2024-01-18 15:08 | A.OFFVIS_ITS ---
Vital Signs 01/18/24 15:09 Height 4 ft 10 in Weight 154 lb 8.705 oz BMI 32.3 BP 134/74 Blood Pressure Location Lt brachial Position Sitting Pulse 76 Pulse Source Pulse Oximeter Intake Visit Reasons: adrenal adenoma Intake Note: Patient present today for Adrenal Adenoma follow up visit. 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 Accompanied by: Self / Same As Patient Allergies morphine Allergy (Unknown, Verified 01/18/24 15:12) ?rash gluten Allergy (Verified 01/18/24 15:12) Unknown lactase [From Dairy Aid] Allergy (Verified 01/18/24 15:12) Unknown peanut [Peanut] Adverse Reaction (Intermediate, Verified 01/18/24 15:12) DIVERTICULITIS Medication List - Last Reconciled 01/18/24 by Arron Bejarano MD cholecalciferol (vitamin D3) 50 mcg PO BEDTIME dexamethasone 1 mg PO ONCE levothyroxine 100 mcg PO DAILY HPI Comments Details: 63 YO F with PMHx Postoperative hypothyroidism after total thyroidectomy due to Toxic multinodular goiter, Osteopenia, R adrenal adenoma, Breast cancer now in remission who is seen in F/U for the same today. Patient last saw Dr. Evans on 10/13/2022 Of note she has not been seen since 2020 and has no recent labs or imaging to review. 1. Toxic multinodular goiter s/p total thyroidectomy: She had a history of toxic multinodular goiter and is now S/P total thyroidectomy by Dr. Arteaga 07/06/18. Path report revealed benign thyroid gland and removal of a solitary hypercellular parathyroid gland. She reports feeling well and has no complaints today. She has been taking Levothyroxine 100 mcg PO daily. TSH has remained WNL. She takes this correctly. 2. Osteopenia: Was initially diagnosed with Osteopenia many years ago. Has never been treated for this. Currently has 1 serving of dairy per day in the form of cheese. Takes Vitamin D 2000 IU daily, and also takes Citracal 1200 mg PO daily. She has no history of fracture. She denies any height loss. Denies ever using glucocorticoid medication, anticoagulant or antiepileptic meds. Not on chronic PPI therapy. No history of Osteoporosis in her family or history of hip fracture. She was a heavy smoker, but quit in 2019. She is , did not breast feed. Menarche age 13, menopause in mid 40's. Menses were always regular. Has poor dentition. 3. R adrenal adenoma: This is present on CT scan from 2015. Had repeat imaging 04/2020 which was unchanged. Her hormonal workup was negative for any evidence of pheochromocytoma or armida's disease. 4. Hypercalcemia: Labs reveal Calcium higher than expected for her age. PTH is WNL. She is refusing DEXA scan or additional workup at this time. Labs: Laboratory Tests 04/19/18 04/16/19 04/21/20 07:40 08:15 08:00 Creatinine Estimated GFR Calcium Albumin N-Telopeptide X-linked 25-OH Vitamin D Total TSH PTH Intact Calcium (PTH Intact) Cortisol ACTH Pl Free Catecholamine 355 Plas Tot Catecholamine Dopamine Epinephrine Norepinephrine Plasma Free Metaneph Plasma Free Normeta Plas Total Metaneph Ur 24 Hour Volume 1275 Ur Creatinine 24 Hour 0.8 L Ur Epinephrine 24 Hr U Norepinephrine 24 Hr U Free Metanephrine U Normetanephrine 24h U Tot Metanephrine 24h Ur Dopamine 24 Hr U Tot Catecholamine 24h Bone Specific Alk Phos 20.5 Dexamethasone 04/21/20 04/21/20 04/21/20 08:00 08:00 08:13 Creatinine 0.70 Estimated GFR > 60 Calcium 9.8 Albumin 4.4 N-Telopeptide X-linked 25-OH Vitamin D Total TSH 1.13 PTH Intact Calcium (PTH Intact) Cortisol ACTH Pl Free Catecholamine Plas Tot Catecholamine Dopamine Epinephrine Norepinephrine Plasma Free Metaneph Plasma Free Normeta Plas Total Metaneph Ur 24 Hour Volume Ur Creatinine 24 Hour Ur Epinephrine 24 Hr 4 U Norepinephrine 24 Hr 27 U Free Metanephrine 58 L U Normetanephrine 24h 209 U Tot Metanephrine 24h 267 Ur Dopamine 24 Hr 117 U Tot Catecholamine 24h 31 Bone Specific Alk Phos Dexamethasone 04/21/20 04/21/20 04/21/20 08:13 08:13 08:13 Creatinine Estimated GFR Calcium Albumin N-Telopeptide X-linked 25-OH Vitamin D Total TSH PTH Intact Calcium (PTH Intact) Cortisol 1.0 L ACTH <[address] Free Catecholamine Plas Tot Catecholamine 414 Dopamine 35 H Epinephrine <40 Norepinephrine 379 Plasma Free Metaneph Plasma Free Normeta Plas Total Metaneph Ur 24 Hour Volume Ur Creatinine 24 Hour Ur Epinephrine 24 Hr U Norepinephrine 24 Hr U Free Metanephrine U Normetanephrine 24h U Tot Metanephrine 24h Ur Dopamine 24 Hr U Tot Catecholamine 24h Bone Specific Alk Phos Dexamethasone 04/21/20 04/21/20 04/21/20 08:13 08:13 08:13 Creatinine Estimated GFR Calcium Albumin N-Telopeptide X-linked 25-OH Vitamin D Total 42.8 TSH PTH Intact 35 Calcium (PTH Intact) 10.[address] Free Catecholamine Plas Tot Catecholamine Dopamine Epinephrine Norepinephrine Plasma Free Metaneph 33 Plasma Free Normeta 71 Plas Total Metaneph 104 Ur 24 Hour Volume Ur Creatinine 24 Hour Ur Epinephrine 24 Hr U Norepinephrine 24 Hr U Free Metanephrine U Normetanephrine 24h U Tot Metanephrine 24h Ur Dopamine 24 Hr U Tot Catecholamine 24h Bone Specific Alk Phos Dexamethasone TNP 04/21/20 Unknown Creatinine Estimated GFR Calcium Albumin N-Telopeptide X-linked 46 25-OH Vitamin D Total TSH PTH Intact Calcium (PTH Intact) Cortisol ACTH Pl Free Catecholamine Plas Tot Catecholamine Dopamine Epinephrine Norepinephrine Plasma Free Metaneph Plasma Free Normeta Plas Total Metaneph Ur 24 Hour Volume Ur Creatinine 24 Hour Ur Epinephrine 24 Hr U Norepinephrine 24 Hr U Free Metanephrine U Normetanephrine 24h U Tot Metanephrine 24h Ur Dopamine 24 Hr U Tot Catecholamine 24h Bone Specific Alk Phos Dexamethasone MRI Abdomen 05/03/2020: FINDINGS: LUNG BASES: The visualized lung bases are unremarkable. LIVER, GALLBLADDER, AND BILIARY TREE: The liver is normal in size, smooth in contour, and normal in signal. No focal hepatic lesion or biliary ductal dilatation is present. The gallbladder is unremarkable with no evidence of gallbladder wall thickening, or obvious pericholecystic inflammatory changes. PANCREAS: Unremarkable. SPLEEN: Normal. ADRENAL GLANDS: There is a 1.6 x 1.2 cm right adrenal nodule, overall similar in size as compared to the prior study. This nodule demonstrates decreased signal on opposed phase imaging, compatible with a lipid rich adrenal adenoma. The left adrenal gland is normal. KIDNEYS AND URETERS: The kidneys are normal in size, shape, and enhance symmetrically. No hydronephrosis. No perinephric stranding. GASTROINTESTINAL TRACT: The visualized stomach and small bowel are unremarkable. Again demonstrated is colonic diverticulosis. No evidence of diverticulitis. ABDOMINAL WALL: No significant hernia is appreciated. LYMPH NODES: No lymphadenopathy. VASCULAR: Normal caliber of the abdominal aorta OSSEOUS STRUCTURES: Marrow signal normal. Workup for hypersecretion including a dexamethasone suppression test was normal [facility] Medical History Adrenal adenoma Hypercalcemia Hypothyroidism Osteopenia Vitamin D deficiency Surgical History S/P thyroidectomy Status post reversal of ileostomy S/P colostomy takedown Status post Jeremiah procedure Hx of colonoscopy H/O mastectomy Hx of rotator cuff surgery Family History Father Hypertension Skin cancer Mother No problems noted. Social History Household Members: Spouse Housing: House Do you presently have visiting nurse or other home services: No Patient Tobacco Use Status: Never used Tobacco Substance Use Type: Marijuana service: No Current occupational status: employed Physical Exam Vital Signs: BMI result Body Mass Index 32.3 Assessment & Plan Assessment & Plan (1) Adrenal adenoma: Code(s): D35.00 - Benign neoplasm of unspecified adrenal gland Category: Medical Qualifiers: Laterality: right Qualified Code(s): D35.01 - Benign neoplasm of right adrenal gland Plan: This 63-year-old white female with a history of a right adrenal adenoma with benign characteristics and negative workup for hypersecretion. Previous dexamethasone suppression test have been negative There is no need for any further workup or follow-up imaging. Patient can follow up with primary care provider (2) Hypothyroidism: Code(s): E03.9 - Hypothyroidism, unspecified Category: Medical Qualifiers: Hypothyroidism type: unspecified Qualified Code(s): E03.9 - Hypothyroidism, unspecified Plan: Clinically and biochemically euthyroid on 100 mcg levothyroxine. She appears to be clinically euthyroid Will recheck TSH and free T4. If above is normal, patient can follow up with the primary care provider returned back to endocrinology as needed Orders: Orders Thyroid Stimulating Hormone Today E03.9 - Hypothyroidism, unspecified Free T4 (Free Thyroxine) Today E03.9 - Hypothyroidism, unspecified Coding Level of Care Code Est Pt Level 3 (63244) Diagnoses Adenoma of right adrenal gland D35.01 Laterality: right Hypothyroidism, unspecified type E03.9 Hypothyroidism type: unspecified
[2024-01-18 15:09] VITALS: BP 134/74; PULSE 76; BMI 32.3
== END 2024-01-18 16:06 | disposition home or self-care (01) ==
PROVIDERS: PCP Internal Medicine; Visit Provider Internal Medicine Endocrinology, Diabetes & Metabolism
DX: D35.01 Benign neoplasm of right adrenal gland (principal); E03.9 Hypothyroidism, unspecified
CPT/HCPCS: 99213

== ENCOUNTER 2024-01-25 10:58 | Outpatient (REF) | payer OTHER, SELFPAY ==
[2024-01-25 12:43] LABS: Free T4 (Free Thyroxine) 1.12 ng/dL (0.71-1.85); Thyroid Stimulating Hormone 4.06 uIU/mL (0.32-4.0)
== END 2024-01-25 10:59 | disposition home or self-care (01) ==
LOC: HO.LAB 10:58
PROVIDERS: PCP Internal Medicine; Visit Provider Internal Medicine Endocrinology, Diabetes & Metabolism
DX: E03.9 Hypothyroidism, unspecified (principal)
CPT/HCPCS: 36415; 84439; 84443

== ENCOUNTER 2024-03-04 07:40 | Outpatient (REF) | payer OTHER, SELFPAY ==
[2024-03-04 09:10] LABS: Free T4 (Free Thyroxine) 1.15 ng/dL (0.71-1.85); Thyroid Stimulating Hormone 3.91 uIU/mL (0.32-4.0)
== END 2024-03-04 07:41 | disposition home or self-care (01) ==
LOC: HO.LAB 07:40
PROVIDERS: PCP Internal Medicine; Visit Provider Internal Medicine Endocrinology, Diabetes & Metabolism
DX: E03.9 Hypothyroidism, unspecified (principal)
CPT/HCPCS: 36415; 84439; 84443

== ENCOUNTER 2024-05-23 14:21 | Outpatient (AMB) | payer OTHER, SELFPAY ==
--- NOTE | 2024-05-23 14:22 | MHC.OFFVIS ---
Vital Signs 05/23/24 14:25 Height 4 ft 10 in Weight 153 lb 7.068 oz BMI 32.1 BP 132/72 Blood Pressure Location Lt brachial Position Sitting Pulse 76 Pulse Source Pulse Oximeter Pulse Oximetry (%) 97 Oxygen Delivery Method Room Air Intake Visit Reasons: Adrenal adenoma Hypothyroidism Intake Note: Patient present today for Adrenal Adenoma and Hypothyroidism follow up. 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 Required: No Accompanied by: Self / Same As Patient Allergies morphine Allergy (Unknown, Verified 05/23/24 14:25) ?rash gluten Allergy (Verified 05/23/24 14:25) Unknown lactase [From Dairy Aid] Allergy (Verified 05/23/24 14:25) Unknown peanut [Peanut] Adverse Reaction (Intermediate, Verified 05/23/24 14:25) DIVERTICULITIS Medication List - Last Reconciled 05/23/24 by Arron Bejarano MD cholecalciferol (vitamin D3) 50 mcg PO BEDTIME dexamethasone 1 mg PO ONCE levothyroxine 112 mcg PO DAILY HPI Comments Details: 63 YO F with PMHx Postoperative hypothyroidism after total thyroidectomy and post-surgical hypothyroidism, R adrenal adenoma, workup for adrenal Of adenoma showed non secretion 1. Toxic multinodular goiter s/p total thyroidectomy: She had a history of toxic multinodular goiter and is now S/P total thyroidectomy by Dr. Arteaga 07/06/18. Path report revealed benign thyroid gland and removal of a solitary hypercellular parathyroid gland. She reports feeling well and has no complaints today. She has been taking Levothyroxine 100 mcg PO daily. TSH has remained WNL. She takes this correctly. 2. Osteopenia: Was initially diagnosed with Osteopenia many years ago. Has never been treated for this. Currently has 1 serving of dairy per day in the form of cheese. Takes Vitamin D 2000 IU daily, and also takes Citracal 1200 mg PO daily. She has no history of fracture. She denies any height loss. Denies ever using glucocorticoid medication, anticoagulant or antiepileptic meds. Not on chronic PPI therapy. No history of Osteoporosis in her family or history of hip fracture. She was a heavy smoker, but quit in 2018. She is , did not breast feed. Menarche age 13, menopause in mid 40's. Menses were always regular. Has poor dentition. 3. R adrenal adenoma: This is present on CT scan from 2015. Had repeat imaging 04/2020 which was unchanged. Her hormonal workup was negative for any evidence of pheochromocytoma or armida's disease. 4. Hypercalcemia: Labs reveal Calcium higher than expected for her age. PTH is WNL. She is refusing DEXA scan or additional workup at this time. Labs: Laboratory Tests 04/19/18 04/16/19 04/21/20 07:40 08:15 08:00 Creatinine Estimated GFR Calcium Albumin N-Telopeptide X-linked 25-OH Vitamin D Total TSH PTH Intact Calcium (PTH Intact) Cortisol ACTH Pl Free Catecholamine 355 Plas Tot Catecholamine Dopamine Epinephrine Norepinephrine Plasma Free Metaneph Plasma Free Normeta Plas Total Metaneph Ur 24 Hour Volume 1275 Ur Creatinine 24 Hour 0.8 L Ur Epinephrine 24 Hr U Norepinephrine 24 Hr U Free Metanephrine U Normetanephrine 24h U Tot Metanephrine 24h Ur Dopamine 24 Hr U Tot Catecholamine 24h Bone Specific Alk Phos 20.5 Dexamethasone 04/21/20 04/21/20 04/21/20 08:00 08:00 08:13 Creatinine 0.70 Estimated GFR > 60 Calcium 9.8 Albumin 4.4 N-Telopeptide X-linked 25-OH Vitamin D Total TSH 1.13 PTH Intact Calcium (PTH Intact) Cortisol ACTH Pl Free Catecholamine Plas Tot Catecholamine Dopamine Epinephrine Norepinephrine Plasma Free Metaneph Plasma Free Normeta Plas Total Metaneph Ur 24 Hour Volume Ur Creatinine 24 Hour Ur Epinephrine 24 Hr 4 U Norepinephrine 24 Hr 27 U Free Metanephrine 58 L U Normetanephrine 24h 209 U Tot Metanephrine 24h 267 Ur Dopamine 24 Hr 117 U Tot Catecholamine 24h 31 Bone Specific Alk Phos Dexamethasone 04/21/20 04/21/20 04/21/20 08:13 08:13 08:13 Creatinine Estimated GFR Calcium Albumin N-Telopeptide X-linked 25-OH Vitamin D Total TSH PTH Intact Calcium (PTH Intact) Cortisol 1.0 L ACTH <[address] Free Catecholamine Plas Tot Catecholamine 414 Dopamine 35 H Epinephrine <40 Norepinephrine 379 Plasma Free Metaneph Plasma Free Normeta Plas Total Metaneph Ur 24 Hour Volume Ur Creatinine 24 Hour Ur Epinephrine 24 Hr U Norepinephrine 24 Hr U Free Metanephrine U Normetanephrine 24h U Tot Metanephrine 24h Ur Dopamine 24 Hr U Tot Catecholamine 24h Bone Specific Alk Phos Dexamethasone 04/21/20 04/21/20 04/21/20 08:13 08:13 08:13 Creatinine Estimated GFR Calcium Albumin N-Telopeptide X-linked 25-OH Vitamin D Total 42.8 TSH PTH Intact 35 Calcium (PTH Intact) 10.[address] Free Catecholamine Plas Tot Catecholamine Dopamine Epinephrine Norepinephrine Plasma Free Metaneph 33 Plasma Free Normeta 71 Plas Total Metaneph 104 Ur 24 Hour Volume Ur Creatinine 24 Hour Ur Epinephrine 24 Hr U Norepinephrine 24 Hr U Free Metanephrine U Normetanephrine 24h U Tot Metanephrine 24h Ur Dopamine 24 Hr U Tot Catecholamine 24h Bone Specific Alk Phos Dexamethasone TNP 04/21/20 Unknown Creatinine Estimated GFR Calcium Albumin N-Telopeptide X-linked 46 25-OH Vitamin D Total TSH PTH Intact Calcium (PTH Intact) Cortisol ACTH Pl Free Catecholamine Plas Tot Catecholamine Dopamine Epinephrine Norepinephrine Plasma Free Metaneph Plasma Free Normeta Plas Total Metaneph Ur 24 Hour Volume Ur Creatinine 24 Hour Ur Epinephrine 24 Hr U Norepinephrine 24 Hr U Free Metanephrine U Normetanephrine 24h U Tot Metanephrine 24h Ur Dopamine 24 Hr U Tot Catecholamine 24h Bone Specific Alk Phos Dexamethasone MRI Abdomen 05/03/2020: FINDINGS: LUNG BASES: The visualized lung bases are unremarkable. LIVER, GALLBLADDER, AND BILIARY TREE: The liver is normal in size, smooth in contour, and normal in signal. No focal hepatic lesion or biliary ductal dilatation is present. The gallbladder is unremarkable with no evidence of gallbladder wall thickening, or obvious pericholecystic inflammatory changes. PANCREAS: Unremarkable. SPLEEN: Normal. ADRENAL GLANDS: There is a 1.6 x 1.2 cm right adrenal nodule, overall similar in size as compared to the prior study. This nodule demonstrates decreased signal on opposed phase imaging, compatible with a lipid rich adrenal adenoma. The left adrenal gland is normal. KIDNEYS AND URETERS: The kidneys are normal in size, shape, and enhance symmetrically. No hydronephrosis. No perinephric stranding. GASTROINTESTINAL TRACT: The visualized stomach and small bowel are unremarkable. Again demonstrated is colonic diverticulosis. No evidence of diverticulitis. ABDOMINAL WALL: No significant hernia is appreciated. LYMPH NODES: No lymphadenopathy. VASCULAR: Normal caliber of the abdominal aorta OSSEOUS STRUCTURES: Marrow signal normal. Workup for hypersecretion including a dexamethasone suppression test was normal [facility] Medical History Adrenal adenoma Hypercalcemia Hypothyroidism Osteopenia Vitamin D deficiency Surgical History S/P thyroidectomy Status post reversal of ileostomy S/P colostomy takedown Status post Jeremiah procedure Hx of colonoscopy H/O mastectomy Hx of rotator cuff surgery Family History Father Hypertension Skin cancer Mother No problems noted. Social History Household Members: Spouse Housing: House Do you presently have visiting nurse or other home services: No Patient Tobacco Use Status: Never used Tobacco Substance Use Type: Marijuana service: No Current occupational status: employed Physical Exam Vital Signs: BMI result Body Mass Index 32.1 Assessment & Plan Assessment & Plan (1) Adrenal adenoma: Code(s): D35.00 - Benign neoplasm of unspecified adrenal gland Category: Medical Qualifiers: Laterality: right Qualified Code(s): D35.01 - Benign neoplasm of right adrenal gland Plan: This 63-year-old white female with a history of a right adrenal adenoma with benign characteristics and negative workup for hypersecretion. Previous dexamethasone suppression test have been negative There is no need for any further workup or follow-up imaging. Patient can follow up with primary care provider I reviewed the patient's thyroid function, confirming stable levels with current medication dosage. Discussed with the patient her options regarding obtaining a breast prosthesis following mastectomy. Advocated for follow-up with a primary care physician or plastic surgeon for further assistance. Addressed patient's concerns regarding multivitamin use and reviewed past vitamin D levels, finding them within normal limits. Discussed the absence of significant necessity for ongoing adrenal imaging given prior non-cancerous results and recommendations for continued periodic hormonal evaluations. - Continue current thyroid hormone therapy (112 micrograms). - Follow up with your primary care physician or a plastic surgeon regarding the breast prosthesis prescription. - Consider reintroducing multivitamin pending primary care evaluation. - Report any new symptoms such as significant weight changes, unusual bruising or hair growth. - (2) Hypothyroidism: Code(s): E03.9 - Hypothyroidism, unspecified Category: Medical Qualifiers: Hypothyroidism type: unspecified Qualified Code(s): E03.9 - Hypothyroidism, unspecified Plan: Clinically and biochemically euthyroid on 112 mcg levothyroxine. Plan is to continue the current med Coding Level of Care Code Est Pt Level 3 (89538) Diagnoses Adenoma of right adrenal gland D35.01 Laterality: right Hypothyroidism, unspecified type E03.9 Hypothyroidism type: unspecified
[2024-05-23 14:25] VITALS: BP 132/72; PULSE 76; O2SAT 97; BMI 32.1
== END 2024-05-23 14:59 | disposition home or self-care (01) ==
LOC: HO.ENCR 14:22
PROVIDERS: PCP Internal Medicine; Visit Provider Internal Medicine Endocrinology, Diabetes & Metabolism
DX: D35.01 Benign neoplasm of right adrenal gland (principal); E03.9 Hypothyroidism, unspecified
CPT/HCPCS: 99213

== ENCOUNTER 2024-09-23 18:58 | Emergency (ER) | payer OTHER, SELFPAY ==
--- NOTE | 2024-09-23 | ECG_ITS ---
Test Reason : cp Blood Pressure : */* mmHG Vent. Rate : 88 BPM Atrial Rate : 88 BPM P-R Int : 132 ms QRS Dur : 72 ms QT Int : 346 ms P-R-T Axes : 33 41 46 degrees QTcB Int : 418 ms Sinus rhythm with Premature atrial complexes Otherwise normal ECG No previous ECGs available Referred By: Generic ED Physician Electronically Signed By: RANJIT HERNANDEZ
--- NOTE | ~2024-09-23 | XR_ITS ---
CLINICAL HISTORY: Chest pain 1 view chest x-ray Comparison: None provided Findings: Lungs are clear without acute infiltrates. No pneumothorax. Heart size normal. No acute bony abnormalities. Right axillary surgical clips. Impression: No acute processes This document has been electronically signed by: Darren Perez MD on 09/23/2024 19:54:44
[2024-09-23 19:06] VITALS: BP 157/68; PULSE 91; RESP 18; TEMP 36.6; O2SAT 95; BMI 29.2
--- NOTE | 2024-09-23 19:08 | ED_ITS ---
HPI - General Adult General Chief complaint: Chest Pain Stated complaint: CP Time Seen by Provider: 09/23/24 19:22 History of Present Illness ED Provider: Sunny Esparza MD HPI narrative: 64-year-old female who is experiencing constant right parasternal chest discomfort for about a week now constant no exertional component she does feel some worsening with palpation and rotation of her chest. She can not think of any particular injury or straining or stretching. She does not exercise much. She denies cough difficulty breathing hemoptysis leg swelling history of DVT or PE she had a mastectomy remotely in 2004 for breast cancer she tells me she has in remission. Related Data Home Medications ?Medication ?Instructions ?Recorded ?Confirmed cholecalciferol (vitamin D3) 50 50 mcg PO BEDTIME 05/0910/13/22 mcg (2,000 unit) capsule Previous Rx's ?Medication ?Instructions ?Recorded dexamethasone 1 mg tablet 1 mg PO ONCE #1 tab 01/15/23 levothyroxine 112 mcg tablet 112 mcg PO DAILY #90 tabs 07/04/24 Allergies Allergy/AdvReac Type Severity Reaction Status Date / Time morphine Allergy Unknown ?rash Verified 09/23/24 19:08 gluten Allergy Unknown Verified 09/23/24 19:08 lactase (From Dairy Aid) Allergy Unknown Verified 09/23/24 19:08 peanut (Peanut) AdvReac Intermediate DIVERTICULI Verified 09/23/24 19:08 TIS PMFSH Past Medical History Medical History Adrenal adenoma Hypercalcemia Hypothyroidism Osteopenia Vitamin D deficiency Surgical History S/P thyroidectomy Status post reversal of ileostomy S/P colostomy takedown Status post Jeremiah procedure Hx of colonoscopy H/O mastectomy Hx of rotator cuff surgery Family History Family History Father Hypertension Skin cancer Mother No problems noted. Social History Social History Household Members: Spouse Housing: House Do you presently have visiting nurse or other home services: No Patient Tobacco Use Status: Never used Tobacco Substance Use Type: Marijuana Advance Directives: No Advance Directives Information Provided: No Do you have a plan to hurt others: No Plan service: No Current occupational status: employed Physical Exam ED Exam Exam: EXAM: Gen: Alert, awake, well appearing, well hydrated. Head: Atraumatic Eyes: Anicteric, Normal conjunctiva. ENT: Moist mucosa, no pallor. ? Neck: Supple. Skin: ?No observable rash or bruising on exposed or examined skin Respiratory: Breathing comfortably, No distress.Clear to auscultation bilaterally, symmetric chest expansion, No wheeze, rales, ronchi. Cardiovascular: Regular rate and rhythm. No murmurs or rub. Well perfused periphery, warm extremities. No edema. ?Chest wall with remote right mastectomy moderate tenderness along the right parasternal border and midsternum. Pain provoked and reproduced with manipulation and rotation of the right shoulder and rotation of the torso Abdominal: No focal tenderness. Soft, no objective distension. No palpable masses or obvious organomegaly. ?No guarding, no rebound tenderness or other peritoneal findings. : No flank tenderness. Neuro: Alert. Gross movement of all extremities intact. ? Psych: Calm. Cooperative. MSK: No grossly visible deformity. Vital signs: See flowsheet Vital Signs: Vital Signs - 24 hr 09/23/24 19:06 09/23/24 20:37 Temperature 97.8 F 97.9 F Pulse Rate 91 80 Respiratory Rate 18 11 L Blood Pressure 157/68 H 125/84 Pulse Oximetry 95 96 Oxygen Delivery Method Room Air Room Air BMI result Body Mass Index 29.2 Course Course Course Narrative: RME: 3 year female presents to ED for chest pain for 1 week. Patient denies any leg swelling calf pain coughing up blood, pleurisy, fever, or chills. Vital signs stable. EKG labs chest x-ray ordered Procedures Procedure Narrative Procedure Narrative: EMERGENCY ULTRASOUND INTERPRETATION-Limited Echocardiography [This study was ordered, performed, and interpreted by myself. The study reveals: Impression: NORMAL LV FUNCTION, NO RV DYSFUNCTION, NO PERICARDIAL EFFUSION] [Emergent Cardiac for Indication: Views Used: PLAX, PSSA, A4, SX, IVC Pericardial Effusion/Tamponade Findings: NONE RV Dilation (> LV diam in 4ch apical): NONE Global LV Fxn: NORMAL IVC Dilation and Resp Variation: NORMAL Performed by: MD Vilma Images were stored CPT:43366] Medical Decision Making Medical Decision Making MDM Narrative: Medical Decision Making: [age] female with atypical constant nonexertional chest pain does not suggest ACS though this was considered single troponin given the duration excludes MA. no pleuritic nature her cancer history is remote and she is in remission and she has no clinical signs of DVT I doubt PE though this was considered. She is quite tender in the chest wall most likely this is musculoskeletal in etiology. Bedside echo reassuring see the procedure note for details. Remainder of labs non actionable. ECG nonischemic Preliminary Favored Differential Diagnosis: Costochondritis/musculoskeletal, pericarditis less likely given the lack of EKG findings and character and symptomatology. among additional considered etiologies Testing Interpreted Independently: Not Applicable Radiology or Lab testing Results Reviewed: Not Applicable Consults: Not Applicable Independent Historians/External Chart Reviews: Not Applicable Social Determinants of Health Impacting MDM/Planning: Not Applicable Lab Data 09/23/24 19:20 09/23/24 19:20 Labs: Lab Results 09/23/24 Range/Units 19:20 WBC 9.8 (4.8-10.8) X10*3/uL RBC 4.87 (4.20-5.50) X10*6/uL Hgb 14.9 (12.0-16.0) g/dl Hct 42.3 (37.0-47.0) % MCV 86.9 (80.0-98.0) fL MCH 30.6 (27.0-33.0) pg MCHC 35.2 H (31.0-35.0) g/dl RDW 13.2 (11.0-16.0) % Plt Count 198 (160-400) X10*3/uL MPV 10.6 (9.4-12.3) fL Immature Gran % (Auto) 0.3 (0.0-0.4) % Neut % (Auto) 62.6 (45-73) % Lymph % (Auto) 30.2 (20-40) % [place] % (Auto) 5.2 (2-11) % Eos % (Auto) 1.1 (0-4) % Baso % (Auto) 0.6 (0-2) % Lymph # (Auto) 3.0 (1.2-4.9) X10*3/uL [place] # (Auto) 0.5 (0.1-1.2) X10*3/uL Eos # (Auto) 0.1 (0.0-0.4) X10*3/uL Baso # (Auto) 0.1 (0.0-0.2) X10*3/uL Abs Immat Gran (auto) 0.03 (0.00-0.03) X10*3/uL Absolute Neuts (auto) 6.2 (2.0-8.3) x10*3/uL Absolute Nucleated RBC 0.000 (0.0-0.012) X10*3/uL Nucleated RBC % (auto) 0.0 (0.0-0.2) /100WBC PT 10.7 L (10.9-12.4) SEC INR 0.9 (0.9-1.1) APTT 25.5 L (26.0-36.8) SEC Sodium 142 (135-145) mmol/L Potassium 3.7 (3.3-5.1) mmol/L Chloride 109 H (96-108) mmol/L Carbon Dioxide 23 (22-29) mmol/L Anion Gap 14 (12-20) BUN 17 H (9-16) mg/dL Creatinine 0.65 (0.5-1.4) mg/dL Estim Creat Clear Calc 69.8 Estimated GFR > 60 Random Glucose 177 H (60-115) mg/dL Calcium 9.3 (8.4-10.2) mg/dL Total Bilirubin 0.3 (0.0-1.0) mg/dL AST 26 (5-31) U/L ALT 19 (0-31) U/L Alkaline Phosphatase 81 (39-117) U/L Troponin I High Sens < 2.7 (<3.5-17.0) ng/L B-Natriuretic Peptide 25 (<100) pg/mL Total Protein 6.9 (6.5-8.0) g/dL Albumin 4.5 (3.5-5.0) g/dL Discharge Plan Discharge Clinical Impression: Chest pain Patient Disposition: Home, Self-Care Instructions: Chest Pain (ED) Additional Instructions: _ DISCHARGE DIAGNOSES: Chest pain - unclear cause HISTORY OF PRESENTATION: ?Chest pain for 1 week, constant, worse with palpation EMERGENCY DEPARTMENT COURSE,TESTS, TREATMENTS: While in the ED today you had an EKG and chest xray, lab work and bedside echo. All reassuring. You were tender on your chest wall suggesting a musculoskeletal cause DISCHARGE MEDICATIONS: ?[We have made no changes to your regular medication regimen] FOLLOW-UP: ?Call your primary or general physician soon as possible to discuss your symptoms, your ED visit and to discuss follow up plans Call your PCP first thing thursday to discuss your symptoms INSTRUCTIONS ?& RETURN PRECAUTIONS: If any symptoms change first call your primary physician, if it is after-hours your primary doctors office should have a provider precision machinist you can speak with. If the symptoms are severe or very concerning to you then call 911 or return to the ED. Sunny Esparza MD Emergency Physician [facility] Prescriptions: No Action levothyroxine 112 mcg tablet 112 mcg PO DAILY Qty: 90 0RF cholecalciferol (vitamin D3) 50 mcg (2,000 unit) capsule 50 mcg PO BEDTIME dexamethasone 1 mg tablet 1 mg PO ONCE Qty: 1 0RF Interventions: ED Discharge Assessment Last Done: 09/23/24 21:22 Discharge Date/Time: 09/23/24 21:23 Print Language: Sinhala
[2024-09-23 19:24] LABS: MANUAL DIFF FLAG NO
[2024-09-23 19:26] LABS: Hematocrit 42.3 % (37.0-47.0); Hemoglobin 14.9 g/dl (12.0-16.0); Imm Gran Abs Auto 0.03 X10*3/uL (0.00-0.03); Imm Gran Pct Auto 0.3 % (0.0-0.4); Lymphocytes Absolute Auto 3.0 X10*3/uL (1.2-4.9); Mean Corpuscular HGB Conc 35.2 g/dl (31.0-35.0); Mean Corpuscular Hemoglobin 30.6 pg (27.0-33.0); Mean Corpuscular Volume 86.9 fL (80.0-98.0); NRBC Abs Auto 0.000 X10*3/uL (0.0-0.012); NRBC Pct Auto 0.0 /100WBC (0.0-0.2); Platelet Count 198 X10*3/uL (160-400); Red Blood Count 4.87 X10*6/uL (4.20-5.50); White Blood Count 9.8 X10*3/uL (4.8-10.8)
[2024-09-23 19:32] LABS: INTERNATIONAL NORM RATIO 0.9 (0.9-1.1); Prothrombin Time 10.7 SEC (10.9-12.4)
[2024-09-23 19:35] LABS: Partial Thromboplastin Time 25.5 SEC (26.0-36.8)
[2024-09-23 19:40] LABS: Alanine Aminotransferase 19 U/L (0-31); Albumin Level 4.5 g/dL (3.5-5.0); Alkaline Phosphatase 81 U/L (39-117); Anion Gap 14 (12-20); Aspartate Amino Transferase 26 U/L (5-31); Blood Urea Nitrogen 17 mg/dL (9-16); Calcium 9.3 mg/dL (8.4-10.2); Carbon Dioxide 23 mmol/L (22-29); Chloride 109 mmol/L (96-108); Creatinine Clr Calc Pharmacy 69.8; Estimated Glomerular Filt Rate > 60; Potassium 3.7 mmol/L (3.3-5.1); Sodium 142 mmol/L (135-145); Total Protein 6.9 g/dL (6.5-8.0)
[2024-09-23 19:46] LABS: B Type Natriuretic Peptide 25 pg/mL (<100)
[2024-09-23 19:51] LABS: Troponin-I High Sensitivity < 2.7 ng/L (<3.5-17.0)
[2024-09-23 20:37] VITALS: BP 125/84; PULSE 80; RESP 11; TEMP 36.6; O2SAT 96
[2024-09-23 21:22] VITALS: BP 125/84; PULSE 80; RESP 11; TEMP 36.6; O2SAT 96
== END 2024-09-23 21:23 | disposition home or self-care (01) ==
PROVIDERS: Physician Assistant; Emergency Provider Emergency Medicine
DX: R07.9 Chest pain, unspecified (principal)
CPT/HCPCS: 36415; 71045; 80053; 83880; 84484; 85025; 85610; 85730; 93005; 93308; 99284

== ENCOUNTER → 2024-09-23 19:01 | Outpatient (BNV) | payer OTHER, SELFPAY | PROVIDERS: Emergency Provider Emergency Medicine; Visit Provider Internal Medicine | DX: R07.9 Chest pain, unspecified (principal) | CPT/HCPCS: 93010 ==

== ENCOUNTER → 2024-09-23 19:07 | Outpatient (BNV) | payer OTHER, SELFPAY | PROVIDERS: Emergency Provider Emergency Medicine; Visit Provider Radiology Diagnostic Radiology | DX: R07.89 Other chest pain (principal) | CPT/HCPCS: 71045 ==